=== PATIENT | male | born 1960 | race Caucasian/White ===

== ENCOUNTER → 2018-09-04 10:14 | Outpatient (CLI) | payer OTHER, SELFPAY ==
[2018-09-04 12:42] LABS: Anion Gap 8 (5-15); BUN 21 mg/dL (7-18); BUN/Creat Ratio 23.8 RATIO (10-20); Calcium,Total 8.8 mg/dL (8.5-10.1); Chloride 105 mmol/L (98-107); Cholesterol 189 mg/dL (200); Creatinine, Serum 0.88 mg/dL (0.70-1.30); EST Glomerular Filtration Rate 94 mL/min (>60); Est Glom Filt Rate - Afr Amer 113 mL/min (>60); Glucose 89 mg/dL (74-106); High Density Lipoprotein 55 mg/dL; Potassium 4.4 mmol/L (3.5-5.1); Sodium Level 141 mmol/L (136-145); Triglycerides 91 mg/dL; Very Low Density Lipoprotein 18 mg/dL (5-40)
--- OUTSIDE RECORDS SUMMARY | 2018-10-28 15:09 | XMS RPT_ITS ---
:1960 Author Organization OHIP Care Team Providers Name Role Phone Osvaldo Webster Attending Unavailable Osvaldo Webster Primary Care Unavailable PROBLEMS PROBLEMS No Problem Records FoundPROCEDURES PROCEDURES No Procedure Records FoundRESULTS RESULTS BASIC METABOLIC Collected: 09/04/2018 Status: F Source: KRISTA PROFILE (BMP) 10:16 AM [facility] REPOSITORY TYPE CODE TESTS RESULT OUT OF RANGE REFERENCE UNITS LAB L501.0100 74-106 mg/dL Normal GLU 89 Result Comment: Please note revised GLUCOSE reference range effective 2017. LAB L501.1000 7-18 mg/dL High BUN 21 LAB L501.1100 0.70-1.30 mg/dL Normal CREAT,SERUM 0.88 Result Comment: The validity of the calculated GFR AND GFRAA in patients over 70 years has not been determined. Clinical correlation is essential. LAB L501.1110 >60 mL/min Normal EST GFR 94 Result Comment: Non- GFR Calc LAB L501.1115 >60 mL/min Normal EST GFR - AA 113 Result Comment: GFR Calc LAB L501.1300 10-20 RATIO High BUN/CRE 23.8 LAB L501.2200 8.5-10.1 mg/dL CA Normal 8.8 LAB L501.5300 136-145 mmol/L NA Normal 141 LAB L501.5600 3.5-5.1 mmol/L K Normal 4.4 LAB L501.5900 98-107 mmol/L CL Normal 105 LAB L501.6100 21.0-32.0 mmol/L Normal CO2 28.0 LAB L501.6200 5-15 Normal GAP 8 Performed By: #### L500.2500, L500.4100 #### Laboratory [address] [place], [place], [address] LIPID PROFILE Collected: 09/04/2018 Status: F Source: [place] 10:16 AM [facility] REPOSITORY TYPE CODE TESTS RESULT OUT OF RANGE REFERENCE UNITS LAB L501.4900 200 mg/dL Normal CHOL 189 Result Comment: <200 mg/dL Desirable 200-240 mg/dL Borderline >240 mg/dL High Risk LAB L501.5000 mg/dL Normal TRIG 91 Result Comment: The drugs N-Acetylcysteine and Metamizole may falsely depress this assay. Serum Triglycerides Reference Interval Normal <150 mg/dL Borderline high 150 - 199 mg/dL High 200 - 499 mg/dL Very High > or = 500 mg/dL LAB L501.6400 mg/dL Normal HDL 55 Result Comment: The drugs N-Acetylcysteine and Metamizole may falsely depress this assay. Reference Range HDL <40 mg/dL Low HDL Cholesterol HDL >or= 60 mg/dL High HDL Cholesterol LAB L501.6500 0-130 mg/dL Normal LDL 116 LAB L501.6600 5-40 mg/dL Normal VLDL 18 Performed By: #### L500.2500, L500.4100 #### Laboratory [address] [place], [address] ALLERGIES ALLERGIES DATE TYPE / CODE NAME / CODE REACTION SEVERITY SOURCE 09/17/2013 Drug ampicillin/F Rash Unknown [facility] Allergy/4160 [id number]( Hospital 42974(SNOMED NORM) Repository CT) ENCOUNTERS ENCOUNTERS ADMIT/DISCHARGE ACCOUNT ADMITTING ENCOUNTER LOCATION SOURCE NUMBER CLASS 09/04/2018 [id number] Ambulatory [facility] ing:MFPLAB Repository PAYERS PAYERS ENCOUNTER GUARANTOR PAYER SUBSCRIBER SOURCE 09/04/2018 Karyn Brink Primary KARYN BRINK [place] [id number] Maty Insurance:Marion IIIDOB: [place], [place] Number: [id number] Hospital [address]Enn: [phone] [id number] Repository [phone] () Date:[id number] [id number], [place] [address]OP: 09/04/2018 Secondary NOT GIVENUNK [place] Insurance:SELF PAY [facility]: Effective Repository Date:2018-09-04
== END ==
PROVIDERS: Family Provider Family Medicine; PCP Family Medicine; Visit Provider Family Medicine
DX: Z00.00 Encounter for general adult medical examination without abnormal findings (principal)
CPT/HCPCS: 36415; 80048; 80061

== ENCOUNTER 2020-04-02 04:59 | Inpatient (IN) | payer OTHER, SELFPAY ==
[2020-04-02] VITALS (11 sets, daily range): BP systolic 123–153; BP diastolic 85–96; PULSE 74–104; RESP 14–18; TEMP 36.6–37.5; O2SAT 95–100; BMI 23.7; BMI 23.6
--- NOTE | 2020-04-02 05:21 | RAD_ITS ---
STUDY: X-RAY CHEST REASON FOR EXAM: Male, 59 years old. BITTEN BY DOG AT 0130 -- BITE ALONG RT DISTAL MEDIAL FOREARM -- C/O PAIN TO THAT AREA AND RT HAND (BEST IMAGES POSSIBLE OF HAND, PATIENT UNABLE TO MOVE FINGER) -- FEVER TECHNIQUE: Single AP portable view of the chest. COMPARISON: None. FINDINGS: The lungs are clear and expanded. There is no demonstrated pleural abnormality. Normal size heart. Normal mediastinum and ann marie. Normal visualized pulmonary arteries. Normal visualized aortic arch and descending thoracic aorta. Normal visualized thoracic spine. Normal visualized ribs, clavicles, and shoulders. There is no demonstrated abnormality of the visualized soft tissue structures of the upper abdomen. RAD/Chest 1 View (Portable) IMPRESSION: Normal x-ray examination of the chest. Electronically Signed: Teri Salinas, at 6:44 EDT Tel , Service support ,
--- NOTE | 2020-04-02 05:22 | RAD_ITS ---
STUDY: X-RAY - RIGHT RADIUS AND ULNA REASON FOR EXAM: Male, 59 years old. BITTEN BY DOG AT 0130 -- BITE ALONG RT DISTAL MEDIAL FOREARM -- C/O PAIN TO THAT AREA AND RT HAND (BEST IMAGES POSSIBLE OF HAND, PATIENT UNABLE TO MOVE FINGER) -- FEVER TECHNIQUE: 2 view(s) of the forearm. COMPARISON: None. FINDINGS: There is no demonstrated soft tissue swelling. Normal visualized radius. Normal visualized ulna. RAD/Forearm 2 Views IMPRESSION: Normal x-ray examination of the radius and ulna. Electronically Signed: Teri Salinas, at 6:42 EDT Tel , Service support ,
--- NOTE | 2020-04-02 05:22 | RAD_ITS ---
STUDY: X-RAY - RIGHT HAND REASON FOR EXAM: Male, 59 years old. Pain after dog bite. TECHNIQUE: 2 view(s) of the hand. COMPARISON: None. FINDINGS: Normal radiocarpal articulation. Normal distal radioulnar joint. Normal visualized carpal bones. Normal carpal articulations Normal carpometacarpal articulation of the thumb. Normal second through fifth carpometacarpal joints. Normal metacarpi. Normal metacarpophalangeal joint of the thumb. Normal interphalangeal joint of the thumb. Normal proximal and distal phalanges of the thumb. Normal metacarpophalangeal joints of the second through fifth fingers. Normal proximal and distal interphalangeal joints of the second through fifth fingers. Normal phalanges of the second through fifth fingers. The soft tissue structures are unremarkable. No radiopaque foreign bodies. RAD/Hand 2 Views IMPRESSION: Normal x-ray examination of the hand. Electronically Signed: Masoud Cuellar MD at 5:58 EDT , Service support ,
[2020-04-02 05:38] LABS: Absolute Lymphocyte Count 0.53 X10^3/uL (0.83-4.51); Absolute Neutrophil Count 9.3 X10^3/uL (2.0-7.7); Basophil# 0.04 X10^3/uL; Basophil% 0.4 % (0-1); Eosinophil# 0.03 X10^3/uL; Eosinophils% 0.3 % (0-5); Hematocrit 43.8 % (40-54); Hemoglobin 15.3 g/dL (13.0-16.5); Lymphocyte # 0.53 X10^3/ul (4.0); Lymphocyte % 4.8 % (19-41); Mean Corp Hgb Conc 34.9 g/dL (32-36); Mean Corpuscular Hgb 31.1 pg (27.0-32.0); Mean Platelet Vol. 9.2 fl (6.2-12.0); Monocyte# 1.05 X10^3/uL; Monocyte% 9.6 % (0-10); NRBC Flagged by Analyzer 0 % (0-5); Neutrophil # 9.25 X10^3/uL (2.7-7.7); Neutrophil % 84.6 % (47-70); POSITIVE DIFFERENTIAL YES; Platelet Count 165 K/mm3 (150-450); RBC Distribution Width CV 11.7 % (11.6-14.6); RBC Distribution Width SD 37.2 fl (35.1-43.9); Red Blood Count 4.92 M/mm3 (4.6-6.2); White Blood Count 10.9 K/mm3 (4.4-11.0)
[2020-04-02 05:41] LABS: Differential Indicated SCAN CRITERIA MET
[2020-04-02] MEDS: 0.9% Normal Saline 1,000 ML 999 ML IV (05:45)
[2020-04-02 05:55] LABS: International Normalized Ratio 1.1; Prothrombin Time (Protime)PT. 13.3 SECONDS (11.7-14.9)
[2020-04-02 05:59] LABS: ALB/GLOB Ratio 1.2 RATIO (0.9-2.4); AST(SGOT) 26 U/L (15-37); Alanine Aminotransfer ALT/SGPT 29 U/L (16-61); Alkaline Phosphatase 70 U/L (45-117); Anion Gap 8 (5-15); BUN 18 mg/dL (7-18); BUN/Creat Ratio 19.8 RATIO (10-20); Calcium,Total 8.2 mg/dL (8.5-10.1); Chloride 105 mmol/L (98-107); Creatinine, Serum 0.91 mg/dL (0.70-1.30); EST Glomerular Filtration Rate 90 mL/min (>60); Est Glom Filt Rate - Afr Amer 109 mL/min (>60); Estimated Creatinine Clearance 82.47 ml/min; Globulin 3.3 g/dL (2.2-4.2); Glucose 125 mg/dL (74-106); Potassium 3.7 mmol/L (3.5-5.1); Protein, Total 7.3 g/dL (6.4-8.2); Sodium Level 137 mmol/L (136-145)
[2020-04-02 06:07] LABS: Lactic Acid 0.8 mmol/L (0.4-1.9)
[2020-04-02 06:18] LABS: Differential Comment SCANNED
[2020-04-02 06:21] LABS: Partial Thromboplast Time 27.4 Seconds (24.1-36.2)
[2020-04-02 06:41] LABS: Bacteria 0 SEEN /hpf (None Seen); Mucous, Urine 0 SEEN /hpf (<or=2+); Red Blood Cells-Urine 0 SEEN /hpf (0-5); Squamous Epithelial Cells - UA 0 SEEN /hpf (0-5); White Blood Cells 0 SEEN /hpf (0-5)
[2020-04-02 06:58] LABS: Color, Urine Yellow (Yellow); Glucose, Dipstick Normal (Normal); Ketone-Dipstick Negative (Negative); Leukocyte Esterase-Dipstick Negative /ul (Negative); Nitrite-Dipstick Negative (Negative); Occult Blood-Urine 10 /ul (Negative); Protein-Dipstick Negative (Negative); Urine Bilirubin Dipstick Negative (Negative); Urine Clarity Clear (Clear); Urine Urobilinogen Normal (Normal)
--- NOTE | 2020-04-02 07:07 | ED.DCSUM_ITS ---
History of Present Illness Chief Complaint: Cellulitis Informant: Patient Onset: Yesterday Context: Sudden Onset Timing: Continuous Narrative: Patient is a 59-year-old male that denies any past medical history presenting with worsening pain from a dog bite to his right forearm. Patient was bit by a boxer yesterday. This occurred at 1330. He followed up at his PCPs office that afternoon was put on clindamycin and Bactrim as patient has an ampicillin allergy. Patient states he took his first dose. Throughout the night he became febrile with a temperature max of 100.1. Patient did take 2 Advil before coming in. He has had worsening redness, pain and now redness streaking up his forearm. He has a hard time opening up his hand. Patient's tetanus was updated most recently 2016. Patient denies any other complaints at this time. He denies any symptoms prior to the dog bite. He denies any nausea, vomiting, chest pain, shortness of breath, urinary symptoms or other rash. Past Medical History - Allergies and Home Meds Allergies/Adverse Reactions: Allergies ampicillin Allergy (Verified 04/02/20 05:09) Rash Primary Care Physician: Osvaldo Webster MD [Primary Care Provider] - Past Medical History: None Surgical History: noncontributory Smoking Status: Never smoker Review of Systems General: Reports: Chills, Fever, Malaise. Denies: Sweats Eyes: Denies: Visual changes - bilaterally, Diplopia ENT: Denies: Rhinorrhea, Sore throat Cardiovascular: Denies: Chest pain, Palpitations Respiratory: Denies: Dyspnea, Cough, Dyspnea on exertion Gastrointestinal: Denies: Abdominal pain, Nausea, Vomiting, Diarrhea, Melena, Hematochezia Genitourinary: Denies: Dysuria, Hematuria, Frequency Musculoskeletal: Reports: Extremity Pain - Right forearm and hand pain. Denies: Back pain Skin: Reports: Rash - Right forearm, Wounds - Right forearm Neurological: Denies: Headache, Weakness, Numbness Physical Exam Vital Signs/Narrative: Vital Signs Temp Pulse Resp BP Pulse Ox 04/02/20 06:21 97.8 F 74 16 137/85 H 99 04/02/20 06:07 97.9 F 85 17 123/90 H 95 04/02/20 05:48 98.1 F 90 16 148/96 H 99 04/02/20 05:47 98.1 F 04/02/20 05:00 98.3 F 104 H 17 153/90 H 98 Inital Vital Signs reviewed: Yes General: Well nourished, Well developed, No Acute Distress Head: Normocephalic, Atraumatic Eyes: Perrl, EOMI ENT: Moist mucous membranes, No rhinorrhea Neck: Supple, Nontender Cardiovascular: Regular rate, Regular rhythm, No murmurs Respiratory: No distress, CTA bilaterally, Chest nontender Abdomen: Soft, Nontender, Nondistended, Normal bowel sounds Back: Nontender, Normal Inspection Extremities: - - Tenderness palpation of the right forearm and hand. Patient is holding his right hand in slight flexion and does have pain with passive range of motion however he does not have other [place] signs. Normal range of motion. Skin: Trauma - 4 small puncture wounds of the ventral aspect of the right mid forearm system with a dog bite. There is surrounding erythema and erythema that is streaking up the arm past the AC fossa. Associated tenderness to palpation Neurological: Alert, Oriented x3, Cranial nerves II-XII grossly intact, Normal Strength, Normal Sensation Psychological: Normal affect, Normal Mood Diagnostic/Tx/Re-eval Clinical Impression(s) from Imaging Studies Chest X-Ray 04/02/20 05:21 IMPRESSION: Normal x-ray examination of the chest. Electronically Signed: Teri Salinas at 6:44 EDT Tel , Service support , Forearm X-Ray 04/02/20 05:22 IMPRESSION: Normal x-ray examination of the radius and ulna. Electronically Signed: Teri Salinas at 6:42 EDT Tel , Service support , Hand X-Ray 04/02/20 05:22 IMPRESSION: Normal x-ray examination of the hand. Electronically Signed: Masoud Cuellar MD at 5:58 EDT , Service support , Laboratory Data 04/02/20 04/02/20 04/02/20 05:20 05:20 05:20 WBC 10.9 RBC 4.92 Hgb 15.3 Hct 43.8 MCV 89.0 MCH 31.1 MCHC 34.9 RDW Std Deviation 37.2 RDW Coeff of Baldomero 11.7 Plt Count 165 MPV 9.2 Immature Gran % (Auto) 0.300 Neut % (Auto) 84.6 H Lymph % (Auto) 4.8 L Bledsoe % (Auto) 9.6 Eos % (Auto) 0.3 Baso % (Auto) 0.4 Absolute Neuts (auto) 9.3 H Absolute Lymphs (auto) 0.53 L Nucleated RBC % 0 Differential Comment SCANNED PT 13.3 INR 1.1 APTT 27.4 Sodium 137 Potassium 3.7 Chloride 105 Carbon Dioxide 24.0 Anion Gap 8 BUN 18 Creatinine 0.91 Estim Creat Clear Calc 82.47 Est GFR (MDRD) Af Amer 109 Est GFR (MDRD) Non-Af 90 BUN/Creatinine Ratio 19.8 Glucose 125 H Lactic Acid Calcium 8.2 L Total Bilirubin 1.30 H AST 26 ALT 29 Alkaline Phosphatase 70 Total Protein 7.3 Albumin 4.0 Globulin 3.3 Albumin/Globulin Ratio 1.2 Urine Color Urine Clarity Urine pH Ur Specific [place] Urine Protein Urine Glucose (UA) Urine Ketones Urine Occult Blood Urine Nitrite Urine Bilirubin Urine Urobilinogen Ur Leukocyte Esterase Urine RBC Urine WBC Ur Squamous Epith Cells Urine Bacteria Urine Mucus 04/02/20 04/02/20 05:35 06:20 WBC RBC Hgb Hct MCV MCH MCHC RDW Std Deviation RDW Coeff of Baldomero Plt Count MPV Immature Gran % (Auto) Neut % (Auto) Lymph % (Auto) Bledsoe % (Auto) Eos % (Auto) Baso % (Auto) Absolute Neuts (auto) Absolute Lymphs (auto) Nucleated RBC % Differential Comment PT INR APTT Sodium Potassium Chloride Carbon Dioxide Anion Gap BUN Creatinine Estim Creat Clear Calc Est GFR (MDRD) Af Amer Est GFR (MDRD) Non-Af BUN/Creatinine Ratio Glucose Lactic Acid 0.8 Calcium Total Bilirubin AST ALT Alkaline Phosphatase Total Protein Albumin Globulin Albumin/Globulin Ratio Urine Color Yellow Urine Clarity Clear Urine pH 6.0 Ur Specific [place] 1.010 Urine Protein Negative Urine Glucose (UA) Normal Urine Ketones Negative Urine Occult Blood 10 H Urine Nitrite Negative Urine Bilirubin Negative Urine Urobilinogen Normal Ur Leukocyte Esterase Negative Urine RBC 0 SEEN Urine WBC 0 SEEN Ur Squamous Epith Cells 0 SEEN Urine Bacteria 0 SEEN Urine Mucus 0 SEEN - Medical Decision Making Is evaluated for worsening redness and swelling in his forearm associate with a dog bite. His tetanus is up-to-date. Patient started outpatient in antibiotics but only had 1 dose. Patient has associated streaking of the hand swelling and pain now of the fingers I think admission is warranted for IV antibiotics given the rapid progression and the high risk of deep space infection associated with dog bites. X-ray performed to rule out foreign body. Urinalysis and chest x- ray obtained looking for other possible source of infection. Cultures are pending. Patient started on Rocephin and Flagyl in the emergency room. He is given Toradol for pain control. He is given IV fluids as well. Patient is agreeable with plan of care. He stable for the general medical floor at time of disposition. ED Disposition - Plan for ED Patient: Disposition: Acute Care Hospital [facility] Diagnosis: Cellulitis of forearm, right, Dog bite of right forearm with infection Referrals: Osvaldo Webster MD [Primary Care Provider] -
[2020-04-02] MEDS: Ketorolac 15 MG/ML Vial IV (07:18)
[2020-04-02] MEDS: Ceftriaxone 1 GM/50 ML BAG IV (07:26)
[2020-04-02] MEDS: metroNIDAZOLE 500 MG/100 ML BAG 100 MG IV (07:26)
--- NOTE | 2020-04-02 07:28 | HP.PCM_ITS ---
Problem List (1) Cellulitis of forearm, right Status: Acute (2) Dog bite of right forearm with infection Status: Acute History of Present Illness Date of Admission: 04/02/20 Chief Complaint: Right forearm redness The patient is a 59 year old M in relatively good health who presented to the emergency department with redness and warmth involving the right forearm. Patient had apparently been bitten by a neighbor's dog a day prior to his admission. He was seen by his primary care physician prescribed clindamycin as well as Bactrim. He however did develop a low-grade fever during the evening as well as streaking up his left forearm. He therefore made the decision to present to the emergency department and assessment of an infected dog bite with cellulitis made admitted to regular nursing for further management Past Medical History Allergies ampicillin Allergy (Verified 04/02/20 05:09) Rash Home Medications: Ambulatory Orders Medication Instructions Recorded Clindamycin HCl 300 mg PO TID 04/02/20 Sulfamethoxazole/Trimethoprim 1 ea PO BID 04/02/20 [Sulfamethoxazole-Tmp Ds Tablet] Surgical History: noncontributory Smoking Status: Never smoker Tobacco Use: Non-smoker - *Family History Maternal History Items: No pertinent history - alive at 89 Sibling History Items: - - At 94 from complications following a fall Review of Systems Constitutional: Reports: Fever HEENT: Denies: Head Aches, Sinus Congestion, Sinus Drainage Cardiovascular: Denies: Chest Pain, Orthopnea, Palpitations, Paroxysmal Noc. Dyspnea Respiratory: Denies: Cough, Shortness of breath at rest, Shortness of breath upon exertion, Sputum production Gastrointestinal: Denies: Abdominal Pain, Hematemesis, Hematochezia, Nausea, Melena, Vomiting Genitourinary: Denies: Dysuria, Frequency, Hematuria, Urgency Musculoskeletal: Denies: Joint Pain, Joint Tenderness Skin: Reports: Skin Changes Neurological: Denies: Focal weakness, Numbness, Tingling Psychiatric: Denies: Homicidal Ideations, Suicidal Ideations Hematologic/ Lymphatic: Denies: Easy Bruising, Easy Bleeding VTE Information - Inpt Only VTE Present on Admission: No VTE Mechan Device Prophylaxis: None VTE Pharm Prophylaxis ordered?: Yes Patient Problems: Active and Suspected Problems Cellulitis of forearm, right (Acute) Dog bite of right forearm with infection (Acute) Objective: GENERAL: cooperative HEENT: Atraumatic; EYES; Anicteric, Normal Conjunctiva NECK; supple, normal thyroid, RESPIRATORY: Diminished to auscultation CARDIOVASCULAR: Regular S1 S2, GI: soft, normoactive bowel sounds, : No Renal angle tenderness; EXTREMITIES: An area of erythema involving on the right forearm extending up to the antecubital fossa MUSCULOSKELETAL: no muscle waisting NEURO: Awake; no lateralizing signs. SKIN: As described above PSYCH; Flat affect - Physical Exam Vitals/I&O's: Vital Signs Temp Pulse Resp BP Pulse Ox 97.8 F 74 16 137/85 H 99 04/02/20 06:21 04/02/20 06:21 04/02/20 06:21 04/02/20 06:21 04/02/20 06:21 Oxygen Delivery Method Room Air Weight: 70.8 kg Body Mass Index (BMI) 23.7 Intake and Output for Last 24 Hours 03/31/20 04/01/20 04/02/20 23:59 23:59 23:59 Intake Total 1000 / 1000 Balance 1000 / 1000 Laboratory Results 04/02/20 05:20: WBC 10.9, RBC 4.92, Hgb 15.3, Hct 43.8, MCV 89.0, MCH 31.1, MCHC 34.9, RDW Std Deviation 37.2, RDW Coeff of Baldomero 11.7, Plt Count 165, MPV 9.2, Immature Gran % (Auto) 0.300, Neut % (Auto) 84.6 H, Lymph % (Auto) 4.8 L, [place] % (Auto) 9.6, Eos % (Auto) 0.3, Baso % (Auto) 0.4, Absolute Neuts (auto) 9.3 H, Absolute Lymphs (auto) 0.53 L, Nucleated RBC % 0, Differential Comment SCANNED 04/02/20 05:20: PT 13.3, INR 1.1, APTT 27.4 04/02/20 05:20: Sodium 137, Potassium 3.7, Chloride 105, Carbon Dioxide 24.0, Anion Gap 8, BUN 18, Creatinine 0.91, Estim Creat Clear Calc 82.47, Est GFR (MDRD) Af Amer 109, Est GFR (MDRD) Non-Af 90, BUN/Creatinine Ratio 19.8, Glucose 125 H, Calcium 8.2 L, Total Bilirubin 1.30 H, AST 26, ALT 29, Alkaline Phosphatase 70, Total Protein 7.3, Albumin 4.0, Globulin 3.3, Albumin/Globulin Ratio 1.2 04/02/20 05:35: Lactic Acid 0.8 04/02/20 06:20: Urine Color Yellow, Urine Clarity Clear, Urine pH 6.0, Ur Specific [place] 1.010, Urine Protein Negative, Urine Glucose (UA) Normal, Urine Ketones Negative, Urine Occult Blood 10 H, Urine Nitrite Negative, Urine Bilirubin Negative, Urine Urobilinogen Normal, Ur Leukocyte Esterase Negative, Urine RBC 0 SEEN, Urine WBC 0 SEEN, Ur Squamous Epith Cells 0 SEEN, Urine Bacteria 0 SEEN, Urine Mucus 0 SEEN Current Medications Metronidazole (Flagyl) 500 mg in 100 mls @ 100 mls/hr IV X1 ONE Stop: 04/02/20 08:09 Last Admin: 04/02/20 07:26 Dose: 100 mls/hr Documented by: Ceftriaxone Sodium (Rocephin) 1 gm in 50 mls @ 100 mls/hr IV X1 ONE Stop: 04/02/20 07:39 Last Admin: 04/02/20 07:26 Dose: 100 mls/hr Documented by: Assessment/Plan All Active Problems Cellulitis of forearm, right (Acute) Dog bite of right forearm with infection (Acute) Patient is a 59-year-old gentleman presented with right forearm erythema and streaking 1. Cellulitis of the right forearm following the dog bites ?Patient did feel outpatient treatment with oral antibiotics admitted to regular nursing floor where patient was started on Levaquin and clindamycin. He apparently has an allergy to penicillin. 2. DVT prophylaxis Lovenox CODE STATUS Full code Inpatient E&M: 56514 Init Hosp L2
--- NOTE | 2020-04-02 09:45 | CASEMGMT ---
RN JANA Face to Face with patient for initial transition planning/care coordination assessment. RN CM introduced self and role at [facility]. Patient lying in bed, alert and oriented. Patient willing to participate in assessment and is able to answer all questions appropriately. Care providers, pharmacy, and demographics verified. Patient wishes to discharge home, denies need for home health at this time. Patient states he has no further needs or concerns at this time. CM to follow for discharge planning needs that may arise. PCP: Eleanor Specialists: [facility] Preferred Pharmacy: [facility] Insurance: [employer] Prescription Benefit: yes Living Will/HPOA: yes, Kenia Brink LNOK: Living Arrangements: Patient lives with in 2 story home. Patient is independent at home and is able to ambulate the stairs. Transportation: self/ DME/HHC: Patient denies any DME or previous HHC. Disposition Plan: Patient to discharge home with family support and follow-up plans in place. Yuki COKER, RN, CM
[2020-04-02] MEDS: levoFLOXacin IV 750 MG/150 ML BAG 100 MG IV (10:16)
[2020-04-02] MEDS: Enoxaparin 40 MG/0.4 ML Syringe SC (10:16)
[2020-04-02] MEDS: Acetaminophen 325 MG Tablet 650 MG PO ×2 (10:16→20:26)
[2020-04-02] MEDS: oxyCODONE 5 MG Tablet PO ×2 (11:09→20:26)
--- NOTE | 2020-04-02 21:25 | CT_ITS ---
Exam: Contrast CT of the right upper extremity. HISTORY: Dog bite. Pharyngitis. COMPARISON: Radiographs 04/02/2020 FINDINGS: A few tiny foci of soft tissue air seen anterior to the distal ulna which could be related to the dog bite itself, or infection. No gross focal fluid collections or abscess. Normal appearance of the muscle bundles, visualized tendons, bones, and vascular structures. Note: CT scan would not be able to exclude or confirm lymphangitis. CT/Extremity Upper WITH Contrast IMPRESSION: No focal fluid collections or evidence for abscess. A few tiny foci of soft tissue air seen just volar to the distal ulna, see above. Electronically Signed: Marko Valdovinos MD at 23:06 EDT , Service support ,
--- NOTE | 2020-04-02 21:30 | PN_ITS ---
Progress Note Notified by nurse that lymphangitic streaking of right arm is extending up. Patient was seen at the bedside. Patient showed pictures showing spreading of lymphangitic streaking. Alert and oriented x3. Heart sounds S1-S2 present. Lungs clear to auscultate. Patient unable to fully extend fingers of right hand. Decreased strength in right arm. Patient able to straighten the fingers of right arm. Impression Dog bite with cellulitis. Worsening course. On Levaquin and clindamycin.Patient is allergic to penicillin. He received ceftriaxone x1 on presentation. His allergy to penicillin is a diffuse rash. Will start patient on Merrem. 1000 mg now and then 500 mg every 8 hours. We will continue patient on clindamycin. Discontinue Levaquin Discussed with Dr. Chisholm and sent pictures by [facility]. Dr. Chisholm recommended patient be kept n.p.o. after midnight; and a CT of extremity be obtained. Will order as recommended. Dr. Chisholm to see patient tomorrow; appreciate her assistance.. STROKE Vital Signs/Narrative: Vital Signs Pulse 04/02/20 20:00 88
--- NOTE | 2020-04-03 00:01 | NURSING ---
Dr. Maya in the room speaking with the patient and answering questions and going over cat scan. Second time Dr. Maya in the room was in with them at 2030 this night as well ordered antibiotics and scan.
--- NOTE | 2020-04-03 00:32 | PCM.PN.BLA ---
Progress Note Patient is requesting transfer to outside Hospital: [facility] His reason of transfer is: to be seen by Hand surgeon residents tonight. He reports that he has been advised that at [facility] there are residents who work with Hand surgeons and they can see him tonight Discussed with patient of CT scan finding that does not show abscess or any intervention tonight. A copy of CT scan reading was given to patient. Patient still requested that transfer process should begin. Discussed with [facility]. Face sheet and radiologist reading of CT scan was faxed to transfer line. Per transfer line, case will be discussed with [facility] Hospitalist. STROKE Vital Signs/Narrative: Vital Signs Temp Pulse Resp BP Pulse Ox 04/02/20 22:37 98.8 F 99 18 151/95 H 99
--- NOTE | 2020-04-03 00:45 | PCM.DC.SUM ---
Discharge Date and Diagnosis - Problem List Patient Problems: Active and Suspected Problems Cellulitis of forearm, right (Acute) Dog bite of right forearm with infection (Acute) Date of Admission: 04/02/20 Date of Discharge: 04/03/20 - Primary Discharge Diagnosis Acute Problems: Active Problems Cellulitis of forearm, right (Acute) Dog bite of right forearm with infection (Acute) Hospital Course and Treatment Imaging Results: 04/02/20 21:25 CT Arm [Extremity Upper WITH Contrast] [CT] Routine Summary of Care Provided: The patient is a 59 year old M with relative good health who presented to the emergency department with redness and warmth of right forearm after being bitten by a neighbor's dog. Following the dog bite reportedly patient noticed redness streaking up his forearm and had time opening his hand. Patient developed a temperature with a maximum of 100.1 outpatient. Outpatient patient was given clindamycin n.p.o. Bactrim as he was allergic to ampicillin. At emergent department patient was given Rocephin and Flagyl. On x-ray and forearm x-ray was unremarkable. Chest x-ray was unremarkable. Patient was admitted to the medical surgical floor. While inpatient patient was placed on scheduled Levaquin IV and clindamycin IV. While in the medical surgical floor patient thought that the redness of his forearm is extending. Patient was started on meropenem IV. Clindamycin was continued. Orthopedic surgeon was noted. Or surgery recommended the patient be kept n.p.o. and CT of forearm obtained. CT of the forearm showed a few tiny foci of soft tissue air volar to the distal ulna. This was discussed with patient. Patient was adamant that that he want to be transferred to [facility] so that he will be seen night of 04/02/2022 to 04/03/2020. Patient thinks that resident of hand surgeon can still see him night of said date. [facility] was contacted. Patient Problems: Active and Suspected Problems Cellulitis of forearm, right (Acute) Dog bite of right forearm with infection (Acute) - Physical Exam Vitals/I&O's: Vital Signs Temp Pulse Resp BP Pulse Ox 98.8 F 99 18 151/95 H 99 04/02/20 22:37 04/02/20 22:37 04/02/20 22:37 04/02/20 22:37 04/02/20 22:37 Oxygen Delivery Method Room Air Weight: 70.624 kg Body Mass Index (BMI) 23.6 Intake and Output for Last 24 Hours 04/01/20 04/02/20 04/03/20 23:59 23:59 23:59 Intake Total 2 / 2312 Output Total 350 / 350 Balance 1961 General: Alert, Oriented x3, Cooperative HEENT: Atraumatic, PERRLA, EOMI, Normocephalic Neck: Supple, No JVD, Negative Carotid Bruits Lungs: Clear to auscultation, Normal air movement Cardiovascular: Regular rate, Normal S1, Normal S2, No murmurs Abdomen: Bowel Sounds Present, Soft, Non Tender Extremities: Capillary Refill Less than 3 Seconds, Tenderness - Right forearm and right hand. Skin: - - Erythema of volar side of right forearm with lymphangitic streaking extending into right arm. Musculoskeletal: Tenderness - Right forearm and right hand, - - Unable to extend fingers of right hand Neurological: Cranial nerves II-XII grossly intact Psych/Mental Status: Normal Affect, Appropriate Laboratory Results 04/02/20 05:20: WBC 10.9, RBC 4.92, Hgb 15.3, Hct 43.8, MCV 89.0, MCH 31.1, MCHC 34.9, RDW Std Deviation 37.2, RDW Coeff of Baldomero 11.7, Plt Count 165, MPV 9.2, Immature Gran % (Auto) 0.300, Neut % (Auto) 84.6 H, Lymph % (Auto) 4.8 L, [place] % (Auto) 9.6, Eos % (Auto) 0.3, Baso % (Auto) 0.4, Absolute Neuts (auto) 9.3 H, Absolute Lymphs (auto) 0.53 L, Nucleated RBC % 0, Differential Comment SCANNED 04/02/20 05:20: PT 13.3, INR 1.1, APTT 27.4 04/02/20 05:20: Sodium 137, Potassium 3.7, Chloride 105, Carbon Dioxide 24.0, Anion Gap 8, BUN 18, Creatinine 0.91, Estim Creat Clear Calc 82.47, Est GFR (MDRD) Af Amer 109, Est GFR (MDRD) Non-Af 90, BUN/Creatinine Ratio 19.8, Glucose 125 H, Calcium 8.2 L, Total Bilirubin 1.30 H, AST 26, ALT 29, Alkaline Phosphatase 70, Total Protein 7.3, Albumin 4.0, Globulin 3.3, Albumin/Globulin Ratio 1.2 04/02/20 05:35: Lactic Acid 0.8 04/02/20 06:20: Urine Color Yellow, Urine Clarity Clear, Urine pH 6.0, Ur Specific [place] 1.010, Urine Protein Negative, Urine Glucose (UA) Normal, Urine Ketones Negative, Urine Occult Blood 10 H, Urine Nitrite Negative, Urine Bilirubin Negative, Urine Urobilinogen Normal, Ur Leukocyte Esterase Negative, Urine RBC 0 SEEN, Urine WBC 0 SEEN, Ur Squamous Epith Cells 0 SEEN, Urine Bacteria 0 SEEN, Urine Mucus 0 SEEN Current Medications Acetaminophen (Tylenol) 650 mg PO Q6H PRN PRN PRN Reason: Pain Score 1-10/Temp > 100.7 F Last Admin: 04/02/20 20:26 Dose: 650 mg Documented by: Al Hydroxide/Mg Hydroxide (Mylanta Ii) 30 ml PO Q6H PRN PRN PRN Reason: Gastric Burning Dextrose (D50w Syringe) 0 gm IV X1 PRN; Protocol PRN Reason: Hypoglycemia Enoxaparin Sodium (Lovenox) 40 mg SC DAILY [facility] Last Admin: 04/02/20 10:16 Dose: 40 mg Documented by: Glucagon () 1 mg IM .X1 PRN PRN Reason: Hypoglycemia Clindamycin Phosphate 900 mg/ (Dextrose) 106 mls @ 150 mls/hr IV Q8 [facility] Last Infusion: 04/02/20 21:33 Dose: Infused Documented by: Sodium Chloride () 250 mls @ 15 mls/hr IV .[id number] PRN PRN Reason: Saline Flush Sodium Chloride () 250 mls @ 15 mls/hr IV .[id number] PRN PRN Reason: Additional IVPB Infusion Meropenem 1 gm/ Sodium (Chloride) 120 mls @ 33 mls/hr IV X1 ONE Stop: 04/03/20 00:54 Last Admin: 04/02/20 22:28 Dose: 33 mls/hr Documented by: Meropenem 500 mg/ Sodium (Chloride) 60 mls @ 100 mls/hr IV Q8 [facility] Magnesium Hydroxide (Milk Of Magnesia) 30 ml PO DAILY PRN PRN PRN Reason: Constipation Melatonin (Melatonin) 3 mg PO QHS PRN PRN PRN Reason: INSOMNIA Morphine Sulfate () 4 mg IV Q3H PRN PRN PRN Reason: Pain Score 6-10/10 Ondansetron HCl (Zofran) 4 mg IV Q8H PRN PRN PRN Reason: NAUSEA/VOMITING Oxycodone HCl (Oxyir) 5 mg PO Q4H PRN PRN PRN Reason: Pain Score 4-5/10 Last Admin: 04/02/20 20:26 Dose: 5 mg Documented by: Promethazine HCl (Phenergan) 25 mg IM Q6H PRN PRN PRN Reason: Breakthrough nausea/vomiting Sodium Chloride () 10 - 40 ml IV UD PRN PRN Reason: SALINE FLUSH Home Medications: Medications to take at Discharge Clindamycin HCl 300 mg PO TID 04/02/20 Sulfamethoxazole/Trimethoprim [Sulfamethoxazole-Tmp Ds Tablet] 1 ea PO BID 04/02/20 Primary Care Physician: Osvaldo Webster MD [Primary Care Provider] - Medical Necessity - Tobacco Use Smoking Status: Never smoker Tobacco Use: Non-smoker Meaningful Use Info Meaningful Use Diagnoses (Choose all that apply): None applicable Inpatient E&M: 32685 Disch Hosp
--- NOTE | 2020-04-03 01:08 | PCM.PN.BLA ---
Progress Note Transfer line called stated that [facility] hospitalist has declined admission as this will be a lateral transfer. [facility] reportedly had recommended that patient can sign out AMA and go to their emergency department to be seen. [facility] and presented all options to him including signing out AMA. Encouraged patient to stay at hospital and continue IV antibiotics and be seen by orthopedic surgeon ; and Hospitalist in am. Discussed with patient and nurses about putting a Kerlix roll in his right hand and a physical therapy to evaluate and treat for hand exercises. Orders placed for Kerlix roll; and PT and OT consult. STROKE Vital Signs/Narrative: Vital Signs Temp Pulse Resp BP Pulse Ox 04/02/20 22:37 98.8 F 99 18 151/95 H 99
[2020-04-03] MEDS: oxyCODONE 5 MG Tablet PO ×4 (02:08→21:59)
[2020-04-03 02:11] VITALS: BP 155/94; PULSE 81; RESP 18; TEMP 37.1; O2SAT 98
[2020-04-03 07:01] LABS: Absolute Lymphocyte Count 0.88 X10^3/uL (0.83-4.51); Absolute Neutrophil Count 5.5 X10^3/uL (2.0-7.7); Basophil# 0.02 X10^3/uL; Basophil% 0.3 % (0-1); Eosinophil# 0.08 X10^3/uL; Eosinophils% 1.1 % (0-5); Hematocrit 42.5 % (40-54); Hemoglobin 14.8 g/dL (13.0-16.5); Lymphocyte # 0.88 X10^3/ul (4.0); Lymphocyte % 12.3 % (19-41); Mean Corp Hgb Conc 34.8 g/dL (32-36); Mean Corpuscular Hgb 31.6 pg (27.0-32.0); Mean Corpuscular Volume 90.8 fL (80-94); Mean Platelet Vol. 9.3 fl (6.2-12.0); Monocyte# 0.71 X10^3/uL; Monocyte% 9.9 % (0-10); NRBC Flagged by Analyzer 0 % (0-5); Neutrophil # 5.45 X10^3/uL (2.7-7.7); Platelet Count 160 K/mm3 (150-450); RBC Distribution Width CV 11.9 % (11.6-14.6); RBC Distribution Width SD 39.2 fl (35.1-43.9); Red Blood Count 4.68 M/mm3 (4.6-6.2); White Blood Count 7.2 K/mm3 (4.4-11.0)
--- NOTE | 2020-04-03 07:25 | PCM.PN.HOSP ---
Patient Problems: Active and Suspected Problems Cellulitis of forearm, right (Acute) Dog bite of right forearm with infection (Acute) Reason for Visit: Right forearm cellulitis and abscess following a dog bite Subjective: Patient seen complains of improved swelling as well as range of movements in the hands been significantly better compared to the day prior. CT of the forearm obtained demonstrated No focal fluid collections or evidence for abscess. A few tiny foci of soft tissue air seen just volar to the distal ulna, Objective: GENERAL: cooperative HEENT: Atraumatic; EYES; Anicteric, Normal Conjunctiva NECK; supple, normal thyroid, RESPIRATORY: Diminished to auscultation CARDIOVASCULAR: Regular S1 S2, GI: soft, normoactive bowel sounds, : No Renal angle tenderness; EXTREMITIES: An area of erythema involving on the right forearm extending up to the antecubital fossa MUSCULOSKELETAL: no muscle waisting NEURO: Awake; no lateralizing signs. SKIN: As described above PSYCH; Flat affect Vitals/I&O's: Vital Signs Temp Pulse Resp BP Pulse Ox 98.7 F 81 18 155/94 H 98 04/03/20 02:11 04/03/20 02:11 04/03/20 02:11 04/03/20 02:11 04/03/20 02:11 Oxygen Delivery Method Room Air Weight: 70.624 kg Body Mass Index (BMI) 23.6 Intake and Output for Last 24 Hours 04/01/20 04/02/20 04/03/20 23:59 23:59 23:59 Intake Total 2312 / 2912 826 / 826 Output Total 350 / 350 Balance 1962 / 2562 826 / 826 Laboratory Results 04/03/20 06:41: WBC 7.2, RBC 4.68, Hgb 14.8, Hct 42.5, MCV 90.8, MCH 31.6, MCHC 34.8, RDW Std Deviation 39.2, RDW Coeff of Baldomero 11.9, Plt Count 160, MPV 9.3, Immature Gran % (Auto) 0.400, Neut % (Auto) 76.0 H, Lymph % (Auto) 12.3 L, [place] % (Auto) 9.9, Eos % (Auto) 1.1, Baso % (Auto) 0.3, Absolute Neuts (auto) 5.5, Absolute Lymphs (auto) 0.88, Nucleated RBC % 0 07/02/20 06:41: Sodium Pending, Potassium Pending, Chloride Pending, Carbon Dioxide Pending, Anion Gap Pending, BUN Pending, Creatinine Pending, Est GFR (MDRD) Af Amer Pending, Est GFR (MDRD) Non-Af Pending, BUN/Creatinine Ratio Pending, Glucose Pending, Calcium Pending, Magnesium Pending Current Medications Acetaminophen (Tylenol) 650 mg PO Q6H PRN PRN PRN Reason: Pain Score 1-10/Temp > 100.7 F Last Admin: 04/02/20 20:26 Dose: 650 mg Documented by: Al Hydroxide/Mg Hydroxide (Mylanta Ii) 30 ml PO Q6H PRN PRN PRN Reason: Gastric Burning Dextrose (D50w Syringe) 0 gm IV X1 PRN; Protocol PRN Reason: Hypoglycemia Enoxaparin Sodium (Lovenox) 40 mg SC DAILY [facility] Last Admin: 04/02/20 10:16 Dose: 40 mg Documented by: Glucagon () 1 mg IM .X1 PRN PRN Reason: Hypoglycemia Clindamycin Phosphate 900 mg/ (Dextrose) 106 mls @ 150 mls/hr IV Q8 [facility] Last Infusion: 04/03/20 06:51 Dose: Infused Documented by: Sodium Chloride () 250 mls @ 15 mls/hr IV .[id number] PRN PRN Reason: Saline Flush Sodium Chloride () 250 mls @ 15 mls/hr IV .[id number] PRN PRN Reason: Additional IVPB Infusion Meropenem 500 mg/ Sodium (Chloride) 60 mls @ 100 mls/hr IV Q8 [facility] Magnesium Hydroxide (Milk Of Magnesia) 30 ml PO DAILY PRN PRN PRN Reason: Constipation Melatonin (Melatonin) 3 mg PO QHS PRN PRN PRN Reason: INSOMNIA Morphine Sulfate () 4 mg IV Q3H PRN PRN PRN Reason: Pain Score 6-10/10 Ondansetron HCl (Zofran) 4 mg IV Q8H PRN PRN PRN Reason: NAUSEA/VOMITING Oxycodone HCl (Oxyir) 5 mg PO Q4H PRN PRN PRN Reason: Pain Score 4-5/10 Last Admin: 04/03/20 02:08 Dose: 5 mg Documented by: Promethazine HCl (Phenergan) 25 mg IM Q6H PRN PRN PRN Reason: Breakthrough nausea/vomiting Sodium Chloride () 10 - 40 ml IV UD PRN PRN Reason: SALINE FLUSH Medical Necessity - Tobacco Use Smoking Status: Never smoker Tobacco Use: Non-smoker Assessment/Plan All Active Problems Cellulitis of forearm, right (Acute) Dog bite of right forearm with infection (Acute) Patient is a 59-year-old gentleman presented with right forearm erythema and streaking 1. Cellulitis of the right forearm following the dog bites ?Patient did feel outpatient treatment with oral antibiotics admitted to regular nursing floor where patient was started on Levaquin and clindamycin. He apparently has an allergy to penicillin. -04/03/2020. Patient was seen in consultation by Dr. Isabel with infectious diseases note and recommendations including antibiotic recommendations reviewed. 2. DVT prophylaxis Lovenox Clinical Impression(s) from Imaging Studies Upper Extremity CT 04/02/20 21:25 IMPRESSION: No focal fluid collections or evidence for abscess. A few tiny foci of soft tissue air seen just volar to the distal ulna, see above. Electronically Signed: Marko Valdovinos MD at 23:06 EDT , Service support , Inpatient E&M: [id number] Subs Hosp L2
[2020-04-03 07:36] LABS: Anion Gap 6 (5-15); BUN 13 mg/dL (7-18); BUN/Creat Ratio 14.6 RATIO (10-20); Calcium,Total 8.3 mg/dL (8.5-10.1); Chloride 105 mmol/L (98-107); Creatinine, Serum 0.89 mg/dL (0.70-1.30); EST Glomerular Filtration Rate 92 mL/min (>60); Est Glom Filt Rate - Afr Amer 111 mL/min (>60); Estimated Creatinine Clearance 84.33 ml/min; Glucose 118 mg/dL (74-106); Magnesium 2.2 mg/dL (1.6-2.6); Potassium 3.6 mmol/L (3.5-5.1); Sodium Level 138 mmol/L (136-145)
[2020-04-03 07:43] VITALS: O2SAT 97
[2020-04-03] MEDS: Acetaminophen 325 MG Tablet 650 MG PO ×3 (07:56→21:58)
[2020-04-03] MEDS: Enoxaparin 40 MG/0.4 ML Syringe SC (09:29)
[2020-04-03 09:31] VITALS: BP 136/72; PULSE 80; RESP 18; TEMP 36.7; O2SAT 94
--- NOTE | 2020-04-03 10:18 | PCM.HP.ID ---
Problem List (1) Dog bite of right forearm with infection Status: Acute Reason for Consult: dog bite Consulted by: Dr. Mcghee History of Present Illness: The patient is a 59 year old M with minimal PMH, presented 04/02 with R forearm cellulitis after dog bite 04/01. Neighbor was dog sitting, dog is up to date on shots and has been acting normally. He got bite, wound was bleeding, washed with betadine for a few minutes. He is up to date on tetanus. Saw PCP, given clinda and bactrim. Took one dose, had worsening pain, swelling, and redness going up upper arm, fever. Came to ED 04/02, given ceftriaxone/flagyl, then levaquin/clinda, then meropenem and clinda. Wrist is now much better in terms of ROM. Redness much improved. Feeling better, no drainage. He is R handed. Reports rash with ampicillin 40 years ago, no other beta lactams since then other than ceftriaxone here. Full ROS performed and neg except as noted above. - Medical History Surgical History: reviewed Allergies/Adverse Reactions: Allergies ampicillin Allergy (Verified 04/02/20 05:09) Rash Home Medications: Ambulatory Orders Medication Instructions Recorded Clindamycin HCl 300 mg PO TID 04/02/20 Sulfamethoxazole/Trimethoprim 1 ea PO BID 04/02/20 [Sulfamethoxazole-Tmp Ds Tablet] - Social History Tobacco Use: non-smoker Vital Signs Temp Pulse Resp BP Pulse Ox 98.1 F 80 18 136/72 H 94 04/03/20 09:31 04/03/20 09:31 04/03/20 09:31 04/03/20 09:31 04/03/20 09:31 Oxygen Delivery Method Room Air Weight: 70.624 kg Body Mass Index (BMI) 23.6 Laboratory Tests Past 24 Hrs 04/03/20 04/03/20 06:41 06:41 WBC 7.2 RBC 4.68 Hgb 14.8 Hct 42.5 MCV 90.8 MCH 31.6 MCHC 34.8 RDW Std Deviation 39.2 RDW Coeff of Baldomero 11.9 Plt Count 160 MPV 9.3 Immature Gran % (Auto) 0.400 Neut % (Auto) 76.0 H Lymph % (Auto) 12.3 L [place] % (Auto) 9.9 Eos % (Auto) 1.1 Baso % (Auto) 0.3 Absolute Neuts (auto) 5.5 Absolute Lymphs (auto) 0.88 Nucleated RBC % 0 Sodium 138 Potassium 3.6 Chloride 105 Carbon Dioxide 27.0 Anion Gap 6 BUN 13 Creatinine 0.89 Estim Creat Clear Calc 84.33 Est GFR (MDRD) Af Amer 111 Est GFR (MDRD) Non-Af 92 BUN/Creatinine Ratio 14.6 Glucose 118 H Calcium 8.3 L Magnesium 2.2 - Other Studies Radiology: [] reviewed Other Studies: [] Route of nutrition/ use of supplements: [] Nutritional Intake: [] IV Site: [] [place] Catheter: [] - Physical Exam General: Alert, Oriented x3, Cooperative, No apparent distress HEENT: Atraumatic, PERRLA, EOMI Neck: Supple, No Nodes Lungs: Clear to auscultation, Normal air movement Cardiovascular: Regular rate, Regular Rhythm, No murmurs Abdomen: Soft, Non Tender, Non-Distended Extremities: No edema Skin: Ulcer/ Wound - R forearm, resolving erythema, scabbed wounds with no purulence, no pain with wrist or finger movement. IV Site: Peripheral, without redness Musculoskeletal: No Tenderness to Palpation of Joints or Extremities Neurological: Cranial nerves II-XII grossly intact - Assessment/Plan Antibiotics: [] Assessment/Plan: [] Active and Suspected Problems Cellulitis of forearm, right (Acute) Dog bite of right forearm with infection (Acute) Much improved. CT with no abscess or deeper involvement. No fever and normal wbc here. Redness, swelling, and ROM much improved. Dr. Chisholm to see. Will narrow abx to ceftriaxone/flagyl. Plan will be for discharge home on 5-7 more days of po omnicef 300mg bid and flagyl. Remote h/o rash with ampicillin, no issues with ceftriaxone here. Will follow as needed, thank you.
[2020-04-03] MEDS: metroNIDAZOLE 500 MG Tablet PO ×2 (12:34→17:27)
--- NOTE | 2020-04-03 13:32 | CASEMGMT ---
NEIL BATES NOTE: OT eval reviewed and additional therapy recommended. NEIL CM to room to talk with pt. He states he would like OP therapy @ [facility]. Script placed on chart awaiting Dr Mcghee's signature. Dr Mcghee is aware. Script to be given to pt once signature obtained. RNMarcelle, made aware. Tri CLEMONSN NEIL BATES
[2020-04-03 14:50] VITALS: BP 130/80; PULSE 72; RESP 18; TEMP 36.8; O2SAT 100
--- NOTE | 2020-04-03 16:02 | CON.PCM_ITS ---
Reason for Consult Date of Consultation: 04/03/20 Reason for Consultation: right arm pain History of Present Illness: The patient is a 59 year old M [] he patient is a 59 year old M with minimal PMH, presented 04/02 with R forearm cellulitis after dog bite 04/01. Neighbor was dog sitting, dog is up to date on shots and has been acting normally. He got bite, wound was bleeding, washed with betadine for a few minutes. He is up to date on tetanus. Saw PCP, given clinda and bactrim. Took one dose, had worsening pain, swelling, and redness going up upper arm, fever. Came to ED 04/02, given ceftriaxone/flagyl, then levaquin/clinda, then meropenem and clinda. Feeling better today after changing antibiotics. States that the erythema is much better his hand motion is much better he is having a lot less pain as well. Past Medical History Allergies ampicillin Allergy (Verified 04/02/20 05:09) Rash Home Medications: Ambulatory Orders Medication Instructions Recorded Cefdinir [Omnicef [equiv]] 300 mg PO Q12H #14 cap 04/04/20 metroNIDAZOLE [Flagyl] 500 mg PO Q8H #21 tab 04/04/20 Surgical History: noncontributory Psychiatric History: No pertinent psych hx Smoking Status: Never smoker Tobacco Use: Non-smoker Drugs: None - *Family History Maternal History Items: No pertinent history - alive at 96 Sibling History Items: - - At 94 from complications following a fall Review of Systems Constitutional: Denies: Chills, Fever, Weight Change HEENT: Denies: Head Aches, Sinus Congestion, Sinus Drainage Cardiovascular: Denies: Chest Pain, Palpitations Respiratory: Denies: Cough, Shortness of breath at rest, Sputum production Gastrointestinal: Denies: Abdominal Pain, Nausea, Vomiting Genitourinary: Denies: Dysuria Musculoskeletal: Reports: Arm Pain - improiving. Denies: Joint Pain, Joint Tenderness Skin: Denies: Rash, Wounds Neurological: Denies: Numbness, Tingling, Focal weakness Psychiatric: Denies: Anxiety, Depression, Homicidal Ideations, Suicidal Ideations Hematologic/ Lymphatic: Denies: Easy Bruising, Easy Bleeding - Physical Exam Vitals/I&O's: Vital Signs Temp Pulse Resp BP Pulse Ox 98.3 F 72 18 130/80 H 100 04/03/20 14:50 04/03/20 14:50 04/03/20 14:50 04/03/20 14:50 04/03/20 14:50 Oxygen Delivery Method Room Air Weight: 155 lb 11.188 oz Body Mass Index (BMI) 23.6 Intake and Output for Last 24 Hours 04/01/20 04/02/20 04/03/20 23:59 23:59 23:59 Intake Total 2312 / 2912 936 / 936 Output Total 350 / 350 Balance 1962 / 2562 936 / 936 General: Alert, Oriented x3, Cooperative HEENT: Atraumatic, PERRLA, EOMI, Normocephalic Neck: Supple, No JVD, Negative Carotid Bruits Lungs: Clear to auscultation, Normal air movement Cardiovascular: Regular rate, No murmurs Abdomen: Bowel Sounds Present, Soft, Non Tender Extremities: No edema, Capillary Refill Less than 3 Seconds Skin: No rashes, No breakdown Musculoskeletal: Tenderness - at site of dog bite, improved in 24 hours per pictures, incresaed ROM of hand/fingers/wrist while at bedside, min pain with prom of fingers, compts soft, sgi Neurological: Cranial nerves II-XII grossly intact Psych/Mental Status: Normal Affect, Appropriate Microbiology Past 72 Hours 04/02/20 06:20 Urine, Clean Catch Urine Culture - Preliminary Culture exhibits no growth. Laboratory Results 04/03/20 06:41: WBC 7.2, RBC 4.68, Hgb 14.8, Hct 42.5, MCV 90.8, MCH 31.6, MCHC 34.8, RDW Std Deviation 39.2, RDW Coeff of Baldomero 11.9, Plt Count 160, MPV 9.3, Immature Gran % (Auto) 0.400, Neut % (Auto) 76.0 H, Lymph % (Auto) 12.3 L, [place] % (Auto) 9.9, Eos % (Auto) 1.1, Baso % (Auto) 0.3, Absolute Neuts (auto) 5.5, Absolute Lymphs (auto) 0.88, Nucleated RBC % 0 04/03/20 06:41: Sodium 138, Potassium 3.6, Chloride 105, Carbon Dioxide 27.0, Anion Gap 6, BUN 13, Creatinine 0.89, Estim Creat Clear Calc 84.33, Est GFR (MDRD) Af Amer 111, Est GFR (MDRD) Non-Af 92, BUN/Creatinine Ratio 14.6, Glucose 118 H, Calcium 8.3 L, Magnesium 2.2 Current Medications Acetaminophen (Tylenol) 650 mg PO Q6H PRN PRN PRN Reason: Pain Score 1-10/Temp > 100.7 F Last Admin: 04/03/20 15:02 Dose: 650 mg Documented by: Al Hydroxide/Mg Hydroxide (Mylanta Ii) 30 ml PO Q6H PRN PRN PRN Reason: Gastric Burning Dextrose (D50w Syringe) 0 gm IV X1 PRN; Protocol PRN Reason: Hypoglycemia Enoxaparin Sodium (Lovenox) 40 mg SC DAILY [facility] Last Admin: 04/03/20 09:29 Dose: 40 mg Documented by: Glucagon () 1 mg IM .X1 PRN PRN Reason: Hypoglycemia Sodium Chloride () 250 mls @ 15 mls/hr IV .[id number] PRN PRN Reason: Saline Flush Last Admin: 04/03/20 09:24 Dose: 15 mls/hr Documented by: Sodium Chloride () 250 mls @ 15 mls/hr IV .[id number] PRN PRN Reason: Additional IVPB Infusion Ceftriaxone Sodium 2 gm/ (Sodium Chloride) 50 mls @ 100 mls/hr IV Q24 [facility] Last Infusion: 04/03/20 12:33 Dose: Infused Documented by: Magnesium Hydroxide (Milk Of Magnesia) 30 ml PO DAILY PRN PRN PRN Reason: Constipation Melatonin (Melatonin) 3 mg PO QHS PRN PRN PRN Reason: INSOMNIA Metronidazole (Flagyl) 500 mg PO TIDCM [facility] Last Admin: 04/03/20 12:34 Dose: 500 mg Documented by: Morphine Sulfate () 4 mg IV Q3H PRN PRN PRN Reason: Pain Score 6-10/10 Ondansetron HCl (Zofran) 4 mg IV Q8H PRN PRN PRN Reason: NAUSEA/VOMITING Oxycodone HCl (Oxyir) 5 mg PO Q4H PRN PRN PRN Reason: Pain Score 4-5/10 Last Admin: 04/03/20 15:01 Dose: 5 mg Documented by: Promethazine HCl (Phenergan) 25 mg IM Q6H PRN PRN PRN Reason: Breakthrough nausea/vomiting Sodium Chloride () 10 - 40 ml IV UD PRN PRN Reason: SALINE FLUSH Assessment/Plan All Active Problems Cellulitis of forearm, right (Acute) Dog bite of right forearm with infection (Acute) Patient has a dog bite of his right forearm with cellulitis which is markedly improved since changing antibiotics States his range of motion of his fingers and his wrist is improving as well during the course of while I was working with him he also maintain full extension of his fingers is able to lay his hand almost completely flat with his palm down I see no signs acutely of need to take him to the OR CT does not show me any abscess or any streaking or any other issues that I am concerned about from an acute finding however if his condition does worsen he has worsening pain of his forearm decreased motion of his hand or fingers patient told to call me through the hospital necktie operator pockets and pieces directly patient is aware of this as well. At this point patient is markedly improved he is improved range of motion of his hand and fingers even while sitting with him today and working on it at his bedside Occupational therapy did evaluate the patient and he has also been working on his range of motion after seeing them today. His arm is not tight or tense or any concerns at this point for compartment syndrome or abscess or fluctuance We will follow him peripherally if signs or symptoms worsen please do not hesitate to call [phone] This note was generated with [employer] software. It may contain incorrect words, spelling, and punctuation that were not noted in checking the note before signing.
[2020-04-03 20:22] VITALS: BP 130/86; PULSE 72; RESP 16; TEMP 36.7; O2SAT 96
[2020-04-03] MEDS: MELATONIN 3 MG TABLET PO (21:59)
[2020-04-03] MEDS: Magnesium Hydroxide 30 ML UDC PO (21:59)
[2020-04-04 02:21] VITALS: BP 147/89; PULSE 59; RESP 16; TEMP 36.9; O2SAT 99
[2020-04-04 06:39] LABS: Absolute Lymphocyte Count 1.12 X10^3/uL (0.83-4.51); Absolute Neutrophil Count 2.9 X10^3/uL (2.0-7.7); Basophil# 0.03 X10^3/uL; Basophil% 0.6 % (0-1); Eosinophil# 0.19 X10^3/uL; Eosinophils% 3.9 % (0-5); Hematocrit 41.5 % (40-54); Hemoglobin 13.9 g/dL (13.0-16.5); Lymphocyte # 1.12 X10^3/ul (4.0); Lymphocyte % 23.1 % (19-41); Mean Corp Hgb Conc 33.5 g/dL (32-36); Mean Corpuscular Hgb 31.2 pg (27.0-32.0); Mean Corpuscular Volume 93.3 fL (80-94); Mean Platelet Vol. 9.1 fl (6.2-12.0); Monocyte# 0.56 X10^3/uL; Monocyte% 11.5 % (0-10); NRBC Flagged by Analyzer 0 % (0-5); Neutrophil # 2.93 X10^3/uL (2.7-7.7); Neutrophil % 60.5 % (47-70); Platelet Count 145 K/mm3 (150-450); RBC Distribution Width CV 12.2 % (11.6-14.6); RBC Distribution Width SD 41.2 fl (35.1-43.9); Red Blood Count 4.45 M/mm3 (4.6-6.2); White Blood Count 4.9 K/mm3 (4.4-11.0)
[2020-04-04 07:31] LABS: Anion Gap 4 (5-15); BUN 12 mg/dL (7-18); BUN/Creat Ratio 14.8 RATIO (10-20); Calcium,Total 8.1 mg/dL (8.5-10.1); Chloride 107 mmol/L (98-107); Creatinine, Serum 0.81 mg/dL (0.70-1.30); EST Glomerular Filtration Rate 102 mL/min (>60); Est Glom Filt Rate - Afr Amer 124 mL/min (>60); Estimated Creatinine Clearance 92.65 ml/min; Glucose 96 mg/dL (74-106); Potassium 3.6 mmol/L (3.5-5.1); Sodium Level 140 mmol/L (136-145)
[2020-04-04 07:47] VITALS: BP 128/96; PULSE 73; RESP 18; TEMP 37.2; O2SAT 100
[2020-04-04 07:49] VITALS: O2SAT 98
--- NOTE | 2020-04-04 07:50 | DCINST_ITS ---
- Discharge Diagnoses Current Active Problems: Current Active and Chronic Problems Cellulitis of forearm, right (Acute) Dog bite of right forearm with infection (Acute) You will use the following diet at home:: No restrictions Discharge Activity: Return to Normal Activity Allergies/Adverse Reactions: Allergies ampicillin Allergy (Verified 04/02/20 05:09) Rash Medications to take at Discharge Cefdinir [Omnicef [equiv]] 300 mg PO Q12H #14 cap 04/04/20 metroNIDAZOLE [Flagyl] 500 mg PO Q8H #21 tab 04/04/20 The following prescriptions were given: metroNIDAZOLE [Flagyl] 500 mg PO Q8H #21 tab Transmission Status: Received by [id number] Cefdinir [Omnicef [equiv]] 300 mg PO Q12H #14 cap Transmission Status: Received by [id number] Primary Care Physician: Osvaldo Webster MD [Primary Care Provider] - Please follow up with your Primary Care Physician in: in 5-7 days Test Results: Test results from this visit will be discussed in further detail at your follow- up appointment, if applicable. Proposed Discharge Date: 04/04/20
--- NOTE | 2020-04-04 08:57 | DS.PCM_ITS ---
Discharge Date and Diagnosis - Problem List Patient Problems: Active and Suspected Problems Cellulitis of forearm, right (Acute) Dog bite of right forearm with infection (Acute) Date of Admission: 04/02/20 Date of Discharge: 04/04/20 - Primary Discharge Diagnosis Acute Problems: Active Problems Cellulitis of forearm, right (Acute) Dog bite of right forearm with infection (Acute) Hospital Course and Treatment Imaging Results: Clinical Impression(s) from Imaging Studies Chest X-Ray 04/02/20 05:21 IMPRESSION: Normal x-ray examination of the chest. Electronically Signed: Teri Salinas at 6:44 EDT Tel , Service support , Forearm X-Ray 04/02/20 05:22 IMPRESSION: Normal x-ray examination of the radius and ulna. Electronically Signed: Teri Salinas at 6:42 EDT Tel , Service support , Hand X-Ray 04/02/20 05:22 IMPRESSION: Normal x-ray examination of the hand. Electronically Signed: Masoud Cuellar MD at 5:58 EDT , Service support , Upper Extremity CT 04/02/20 21:25 IMPRESSION: No focal fluid collections or evidence for abscess. A few tiny foci of soft tissue air seen just volar to the distal ulna, see above. Electronically Signed: Marko Valdovinos MD at 23:06 EDT , Service support , Summary of Care Provided: Patient is a 59-year-old gentleman presented with right forearm erythema and streaking 1. Cellulitis of the right forearm following the dog bites ?Patient did feel outpatient treatment with oral antibiotics admitted to regular nursing floor where patient was started on Levaquin and clindamycin. He apparently has an allergy to penicillin. -04/03/2020. Patient was seen in consultation by Dr. Isabel with infectious diseases note and recommendations including antibiotic recommendations reviewed. ?04/04/2020: Patient was discharged home on Omnicef and Flagyl as recommended by infectious disease 2. DVT prophylaxis Lovenox Patient Problems: Active and Suspected Problems Cellulitis of forearm, right (Acute) Dog bite of right forearm with infection (Acute) Objective: GENERAL: cooperative HEENT: Atraumatic; EYES; Anicteric, Normal Conjunctiva NECK; supple, normal thyroid, RESPIRATORY: Diminished to auscultation CARDIOVASCULAR: Regular S1 S2, PSYCH; Flat affect - Physical Exam Vitals/I&O's: Vital Signs Temp Pulse Resp BP Pulse Ox 98.9 F 73 18 128/96 H 98 04/04/20 07:47 04/04/20 07:47 04/04/20 07:47 04/04/20 07:47 04/04/20 07:49 Oxygen Delivery Method Room Air Weight: 70.624 kg Body Mass Index (BMI) 23.6 Intake and Output for Last 24 Hours 04/02/20 04/03/20 04/04/20 23:59 23:59 23:59 Intake Total 2312 / 2912 1449.25 / 1449.25 Output Total 350 / 350 Balance 1962 / 2562 1449.25 / 1449.25 Microbiology Past 72 Hours 04/02/20 06:20 Urine, Clean Catch Urine Culture - Preliminary Culture exhibits no growth. Laboratory Results 04/04/20 06:20: WBC 4.9, RBC 4.45 L, Hgb 13.9, Hct 41.5, MCV 93.3, MCH 31.2, MCHC 33.5, RDW Std Deviation 41.2, RDW Coeff of [place] 12.2, Plt Count 145 L, MPV 9.1, Immature Gran % (Auto) 0.400, Neut % (Auto) 60.5, Lymph % (Auto) 23.1, [place] % (Auto) 11.5 H, Eos % (Auto) 3.9, Baso % (Auto) 0.6, Absolute Neuts (auto) 2.9, Absolute Lymphs (auto) 1.12, Nucleated RBC % 0 04/04/20 06:20: Sodium 140, Potassium 3.6, Chloride 107, Carbon Dioxide 29.0, Anion Gap 4 L, BUN 12, Creatinine 0.81, Estim Creat Clear Calc 92.65, Est GFR (MDRD) Af Amer 124, Est GFR (MDRD) Non-Af 102, BUN/Creatinine Ratio 14.8, Glucose 96, Calcium 8.1 L Current Medications Acetaminophen (Tylenol) 650 mg PO Q6H PRN PRN PRN Reason: Pain Score 1-10/Temp > 100.7 F Last Admin: 04/03/20 21:58 Dose: 650 mg Documented by: Al Hydroxide/Mg Hydroxide (Mylanta Ii) 30 ml PO Q6H PRN PRN PRN Reason: Gastric Burning Dextrose (D50w Syringe) 0 gm IV X1 PRN; Protocol PRN Reason: Hypoglycemia Enoxaparin Sodium (Lovenox) 40 mg SC DAILY [facility] Last Admin: 04/03/20 09:29 Dose: 40 mg Documented by: Glucagon () 1 mg IM .X1 PRN PRN Reason: Hypoglycemia Sodium Chloride () 250 mls @ 15 mls/hr IV .[id number] PRN PRN Reason: Saline Flush Last Infusion: 04/03/20 16:57 Dose: 0 mls/hr Documented by: Sodium Chloride () 250 mls @ 15 mls/hr IV .[id number] PRN PRN Reason: Additional IVPB Infusion Ceftriaxone Sodium 2 gm/ (Sodium Chloride) 50 mls @ 100 mls/hr IV Q24 [facility] Last Infusion: 04/03/20 12:33 Dose: Infused Documented by: Magnesium Hydroxide (Milk Of Magnesia) 30 ml PO DAILY PRN PRN PRN Reason: Constipation Last Admin: 04/03/20 21:59 Dose: 30 ml Documented by: Melatonin (Melatonin) 3 mg PO QHS PRN PRN PRN Reason: INSOMNIA Last Admin: 04/03/20 21:59 Dose: 3 mg Documented by: Metronidazole (Flagyl) 500 mg PO TIDCM [facility] Last Admin: 04/03/20 17:27 Dose: 500 mg Documented by: Morphine Sulfate () 4 mg IV Q3H PRN PRN PRN Reason: Pain Score 6-10/10 Ondansetron HCl (Zofran) 4 mg IV Q8H PRN PRN PRN Reason: NAUSEA/VOMITING Oxycodone HCl (Oxyir) 5 mg PO Q4H PRN PRN PRN Reason: Pain Score 4-5/10 Last Admin: 04/03/20 21:59 Dose: 5 mg Documented by: Promethazine HCl (Phenergan) 25 mg IM Q6H PRN PRN PRN Reason: Breakthrough nausea/vomiting Sodium Chloride () 10 - 40 ml IV UD PRN PRN Reason: SALINE FLUSH Discharge Diet: No Restrictions Discharge Activity: Return to Normal Activity Home Medications: Medications to take at Discharge Cefdinir [Omnicef [equiv]] 300 mg PO Q12H #14 cap 04/04/20 metroNIDAZOLE [Flagyl] 500 mg PO Q8H #21 tab 04/04/20 Following Prescrptions Were Given to Patient: metroNIDAZOLE [Flagyl] 500 mg PO Q8H #21 tab Transmission Status: [id number] Cefdinir [Omnicef [equiv]] 300 mg PO Q12H #14 cap Transmission Status: Received by [id number] Primary Care Physician: Osvaldo Webster MD [Primary Care Provider] - Please follow up with your Primary Care Physician in: in 5-7 days Disposition: Home Minutes spent on discharge:: 35 Patient Condition:: Stable Medical Necessity - Tobacco Use Smoking Status: Never smoker Tobacco Use: Non-smoker Meaningful Use Info Meaningful Use Diagnoses (Choose all that apply): None applicable Inpatient E&M: 62374 Disch Hosp
[2020-04-04] MEDS: 0.9% Saline Lock 10 ML Syringe IV (10:25)
--- NOTE | 2020-04-04 11:57 | NURSING ---
DR SANTA CALLED TO SEE POSSIBLE TIME SHE MAY BE COMING IN TO SEE PT. SPOKE TO PT DIRECTLY OVER THE PHONE. OK WITH PT DC TODAY.
[2020-04-04] MEDS: metroNIDAZOLE 500 MG Tablet PO (12:31)
[2020-04-04] MEDS: Ibuprofen 400 MG Tablet 800 MG PO (12:31)
[2020-04-04 12:45] VITALS: BP 128/96; PULSE 73; RESP 18; TEMP 37.2; O2SAT 100
== END 2020-04-04 12:45 | disposition home or self-care (01) | DRG 603 ==
LOC: ED 07:19 → MS3 07:28
PROVIDERS: Admitting Provider Internal Medicine; Emergency Provider Emergency Medicine; PCP Family Medicine; Visit Provider Internal Medicine
DX: L03.113 Cellulitis of right upper limb (principal); S51.851A Open bite of right forearm, initial encounter; W54.0XXA Bitten by dog, initial encounter; Z88.0 Allergy status to penicillin
CPT/HCPCS: 36415; 71045; 73090; 73120; 73201; 80048; 80053; 81001; 83605; 83735; 85025; 85610; 85730; 87040; 87086; 97166; 99285; J2185; J7030; J7050; Q9967; A4216; J0696

== ENCOUNTER 2020-04-21 10:30 | Outpatient (RCR) | payer OTHER, SELFPAY ==
[2020-04-08 14:30] VITALS: BMI 23.6
--- NOTE | 2020-04-16 16:45 | HP.OTEVAL ---
Patient's Visit Information KARYN RHOADES III is a 59 year old M, referred to Occupational Therapy by ANGELA Martines, with a diagnosis of . Date of Evaluation: 04/16/20 Occupational Therapist: Bell Garcia - Subjective Pt reports getting bit by dog 15 days ago at neighbor's house. Pt reports biggest concern is flexibility in R wrist. Saw Dr Guerrier April 08, and has a follow up with her on April 21. - ADLs Comments: No concerns with any Comments: No concerns with any Eating: Cut food Comments: Difficulty with cutting food and grasping writing tools Comments: No concerns Comments: No concerns Comments: No concerns Kitchen: Chop with knife, Peel fruits & vegetables, Open jars, Open bottle caps Comments: Difficulty with holding pens Comments: No concerns Yard: Mow lawn Comments: Difficulty with opening medications - Pain R forearm 2 Pain Intensity Range: 3 - Objective Assessed ROM, strength and stone belt sander. See results below. - ROM Wrist: R ext 55 degrees, L ext 70 degrees; R flex 50 degrees, L flex 75 degrees ROM Comments: Fingers AROM WFL - Strength Sterile Supply Technician: R 22#, L 27# Lateral Pinch: R 14#, L 22# Tripod Pinch: R 8#, L 16# Tip-to-Tip Pinch: R 7#, L 12# Strength Comments: R hand dominant - Sensation Sensation Comments: No numbness/tingling noted - Quick DASH-Disab of Arm,Shoulder& Hand Quick DASH Score: 15.9075 - Goals Goal:: Pt will be able to increase stone belt sander/pinch strength by 5-10# to increase functional strength for improved IND with self care tasks Goal:: Pt will increase R wrist flex/extension by 10-15 degrees to increase functional ROM and flexibility to complete ADL tasks Goal:: Pt will be educated on scar management and demo understanding/knowledge Goal:: Pt will be able to cut/peel with utensils with use of AE PRN for increased IND with tasks by d/c. - Rehabilitation Rehabilitation Potential: Good - Anticipated Interventions A/AAROM/PROM, Strengthening, Scar Care, Joint Protection/Energy Conservation, Fine Motor Coord/Aaron, ADL Training, Education re Diagnosis, Education re Self Massage Techniques, Home Program - Visit Plan Frequency: 2-3x /Week Duration: 6 Weeks TEXT: Thank you for the opportunity to evaluate your patient. For Medicare and Medicare HMO plans, please review the plan of care and approve it. It will need to be FAXED BACK to us at [phone] for Medicare purposes. Please let me know if there are questions or concerns regarding this plan of care. Physician Signature: Date:
--- NOTE | 2020-04-23 10:46 | HP.OTDCSUM ---
It has been my pleasure to treat KARYN RHOADES III under orders from ANGELA Martines, for the diagnosis of for a total of 2 visit(s). Please see the following information for a summary of their discharge status. Objective/Function: R wrist flex/ ext 75/ 136. R regional production manager 79#. R pinch regional production manager tip to tip with index finger 7# Patient Goals: Regain Mobility, Regain Strength, Decrease Swelling/Stiffness, Improve Fine Motor Skills, Use Hand/Wrist/Arm Normally Again, Increase ROM, Resume Former Household Responsibilities (Cooking,Cleaning,Yard, etc.) Other: Scar tissue management/education Goal:: Pt will be able to increase regional production manager/pinch strength by 5-10# to increase functional strength for improved IND with self care tasks Goal:: Pt will increase R wrist flex/extension by 10-15 degrees to increase functional ROM and flexibility to complete ADL tasks Goal:: Pt will be educated on scar management and demo understanding/knowledge Goal:: Pt will be able to cut/peel with utensils with use of AE PRN for increased IND with tasks by d/c. Plan: Pt stated he felt he could strengthen at home and would like to be discharged , cancel all remaining appts. Gave business card, he will call with any concerns If there are questions or concerns regarding this patient's occupational therapy, please fell free to call me at [phone]. Thank you for the referral of this patient. Sincerely, Melinda Loya, OTR/L, CHT
== END 2020-04-21 19:00 | disposition home or self-care (01) ==
LOC: OT 10:30
PROVIDERS: PCP Family Medicine; Referring Provider Physician Assistant; Visit Provider Physician Assistant
DX: S51.851D Open bite of right forearm, subsequent encounter (principal)
CPT/HCPCS: 97110; 97166

== ENCOUNTER → 2020-05-02 13:36 | Outpatient (CLI) | payer OTHER, SELFPAY ==
[2020-04-21 09:08] VITALS: BMI 23.6
== END ==
PROVIDERS: PCP Family Medicine; Referring Provider Family Medicine; Visit Provider Family Medicine
DX: R19.7 Diarrhea, unspecified (principal)
CPT/HCPCS: 87493; 87506

== ENCOUNTER → 2020-06-07 09:18 | Outpatient (CLI) | payer OTHER, SELFPAY ==
[2020-04-21 09:08] VITALS: BMI 23.6
== END ==
PROVIDERS: PCP Family Medicine; Referring Provider Family Medicine; Visit Provider Family Medicine
DX: R19.7 Diarrhea, unspecified (principal)
CPT/HCPCS: 87177; 87209; 87493; 87506

== ENCOUNTER → 2020-07-18 17:32 | Outpatient (CLI) | payer OTHER, SELFPAY ==
[2020-04-21 09:08] VITALS: BMI 23.6
== END ==
PROVIDERS: PCP Family Medicine; Visit Provider Family Medicine
DX: R19.7 Diarrhea, unspecified (principal)
CPT/HCPCS: 87177; 87209; 87493; 87506

== ENCOUNTER → 2021-05-04 15:27 | Outpatient (CLI) | payer OTHER, SELFPAY ==
[2020-04-21 09:08] VITALS: BMI 23.6
--- NOTE | 2021-05-04 15:30 | RAD_ITS ---
STUDY: X-RAY - CERVICAL SPINE REASON FOR EXAM: Male, 61 years old. Neck pain. TECHNIQUE: 5 view(s) of the cervical spine were obtained on 7 images. COMPARISON: None FINDINGS: Osteopenia. Normal anterior atlantoaxial articulation. Normal odontoid process. Normal cervical lordosis. Normal vertebral bodies and endplates. Diffuse uncovertebral and facet sclerosis. Minimal intervertebral disc space narrowing at C5-6 with minimal anterior bony neural foraminal encroachment at this level. The soft tissue structures are unremarkable. RAD/Cerv Spine 4 or 5 Views IMPRESSION: Osteopenia with mild focal cervical spondylosis at C5-6. No erosive change or evidence of fusion. Electronically Signed: Yoseph Hammond MD at 10:37 EDT , Service support ,
== END ==
PROVIDERS: PCP Family Medicine; Referring Provider Family Medicine; Visit Provider Family Medicine
DX: M54.2 Cervicalgia (principal)
CPT/HCPCS: 72050

== ENCOUNTER 2021-05-06 14:55 | Emergency (ER) | payer OTHER, SELFPAY ==
[2020-04-21 09:08] VITALS: BMI 23.6
[2021-05-06 14:58] VITALS: BP 179/117; PULSE 95; RESP 14; TEMP 36.5; O2SAT 98; BMI 23.1
--- NOTE | 2021-05-06 16:28 | MRI_ITS ---
STUDY: MRI CERVICAL SPINE WITHOUT CONTRAST REASON FOR EXAM: Male, 61 years old. neck injury, fall 3 weeks ago TECHNIQUE: Standardized fat and water weighted pulse sequences were obtained in the sagittal and axial planes. COMPARISON: Cervical spine x-rays 05/04/2021 FINDINGS: Normal foramen magnum and brainstem-cervical cord junction. Normal craniovertebral junction. Normal anterior atlantoaxial articulation. Normal odontoid process. Normal cervical lordosis. Normal vertebral bodies and posterior osseous elements. C2-3: Normal endplates. Normal disc height, signal and morphology. Normal central canal and intervertebral neural foramina. C3-4: Normal endplates. Normal disc height, signal and morphology. Normal central canal and intervertebral neural foramina. C4-5: Normal endplates. Normal disc height, signal and tiny right paracentral disc protrusion.. Normal central canal and intervertebral neural foramina. C5-6: Minor endplate spurring.. Normal disc height, signal and tiny central disc protrusion.. Normal central canal and intervertebral neural foramina. C6-7: Normal endplates. Normal disc height, signal and morphology. Normal central canal and intervertebral neural foramina. C7-T1: Normal endplates. Normal disc height, signal and morphology. Normal central canal and intervertebral neural foramina. Normal cervical cord. Normal visualized soft tissue structures. MRI/Spine Cervical (Routine) IMPRESSION: No evidence for acute fracture or other significant bony pathology. Tiny central disc protrusion at C5-6 and tiny right paracentral disc protrusion at C4-5 without evidence for spinal stenosis or cord compression Electronically Signed: Prosper Aleman MD at 19:09 EDT , Service support ,
--- NOTE | 2021-05-06 17:33 | EX.ED.DYSGE1 ---
HPI History of Present Illness Chief Complaint: Other, Pain/Inj Narrative Narrative: Patient presenting for evaluation secondary neck pain. Patient states that earlier last month he suffered a mechanical fall while he was running. He states that initially this started with some pain in his right scapular area. He saw his primary care for this, was started on muscle relaxants as well as NSAIDs. Patient states that since then however he has had a significant progression of pain. Now the pain goes into his neck, radiates down his right arm, and the pain is specifically worsened with flexion and extension of the neck. Patient states that if he extends his neck too far he will have immediate radiation of pain down his right arm. He denies that there is weakness associated with this. He was concerned also because this started to develop a pain in his right foot. He denies that there was any sort of injury associated with this. No bowel or bladder incontinence, fevers chills night sweats or unintended weight loss. He again saw his primary care who started him on prednisone, but the patient had a very acute worsening of his pain today to the point where he almost could not even get out of bed. Patient was recommended to come to the emergency department for further evaluation. PFSH PFS Home Medications cyclobenzaprine 10 mg PO TID 05/06/21 [History Last Taken Unknown] meloxicam 15 mg PO DAILY 05/06/21 [History Last Taken Unknown] oxycodone-acetaminophen [Percocet] 1 tab PO Q6H PRN 3 Days #12 tab 05/06/21 [Rx Last Taken Unknown] prednisone 40 mg PO DAILY 05/06/21 [History Last Taken Unknown] Allergy/AdvReac Type Severity Reaction Status Date / Time ampicillin Allergy Rash Verified 05/06/21 15:01 Surgical History H/O excision of ganglion cyst Social History Smoking Status: Never smoker ROS ROS ED Constitutional Constitutional ED: Denies chills or fever(s) ENT ENT ED: Denies rhinorrhea Cardiovascular Cardiovascular: Denies chest pain Respiratory/Chest Respiratory/Chest: Denies cough or dyspnea Gastrointestinal Gastrointestinal: Denies abdominal pain, diarrhea, nausea or vomiting Genitourinary Genitourinary ED: Denies dysuria or hematuria Musculoskeletal Musculoskeletal: Reports neck pain Integumentary Denies rash Neurologic Neurologic: Denies paresthesias or weakness Psychiatric Psychiatric: Denies depression Endocrine Endocrinology: Denies fatigue Allergic/Immunologic Allergic/Immunologic ED: Denies urticaria EXAM Physical Exam Const Vital Signs: 05/06/21 14:58 05/06/21 17:16 Temperature 97.7 F L Temperature Source Temporal Pulse Rate 95 Respiratory Rate 14 Respiratory Effort Normal Non-Labored Blood Pressure 179/117 H Blood Pressure Mean 137 Pulse Ox 98 Oxygen Delivery Method Room Air Positive well nourished and well developed General Appearance ED: well developed and NAD HEENT Reports moist mucous membranes Negative for trauma or tenderness Eyes EOMs intact bilaterally Neck no lymphadenopathy, supple and no JVD Neck Narrative: No reproducible tenderness on palpation, limitation of flexion and extension but not of rotational movement Chest Wall inspection of chest normal Resp normal respiratory effort and clear to auscultation bilaterally Cardio regular rate, regular rhythm, no murmurs and peripheral pulses 2+ throughout GI normal to inspection, nondistended, normoactive bowel sounds, non-tender and no masses Palpation: soft Back/Spine normal to inspection Extremity normal to inspection General Extremety ED: Negative for tenderness Neuro oriented x3 and no sensory deficits noted Neuro Narrative: 5 out of 5 strength at the shoulder elbow wrist and hand with normal sensation over most dermatomes, there is some decrease sensation over the radial portion of the patient's forearm. 2+ brachial radialis biceps and triceps reflexes normal distal pulses. Sensorium / Orientation: alert Motor Exam: strength 5/5 throughout Psych mental status grossly normal Skin no rashes or lesions noted MDM MDM MDM Narrative Medical decision making narrative: Patient presented with radicular neck pain that was worsening with flexion and extension associated with an injury that was worsening. I was concerned for the possibility of emergent process, so I did order an MRI of the patient's cervical spine. This demonstrates no evidence of acute fracture or significant bony pathology, does show some central disc protrusion at C5 and C6, and a right-sided paracentral disc protrusion at C4 and C5 without significant spinal stenosis or cord compression. This likely is the source of the patient's pain. At this point patient has radicular cervical pain. He is already on Mobic, Flexeril, and prednisone. I recommended that he continue these medications. He will be given a referral to neurosurgery. Patient did request a short course of analgesics, will be provided with Percocet. Patient was discharged in stable condition. Radiography Diagnostic Testing: Radiology Impression Cervical Spine MRI 05/06/21 16:28 IMPRESSION: No evidence for acute fracture or other significant bony pathology. Tiny central disc protrusion at C5-6 and tiny right paracentral disc protrusion at C4-5 without evidence for spinal stenosis or cord compression Electronically Signed: Prosper Aleman MD at 19:09 EDT , Service support , Discharge Plan Triage Chief Complaint: Other, Pain/Inj ED Provider: Dereck Shaffer Dx/Rx/DC Orders Clinical Impression: Cervical radiculopathy Instructions: ED Radiculopathy, Cervical Prescriptions: New oxycodone-acetaminophen [Percocet] 5-325 mg tablet 1 tab PO Q6H PRN (Reason: pain) 3 Days Qty: 12 RF: 0 No Action meloxicam 15 mg tablet 15 mg PO DAILY RF: 0 prednisone 20 mg tablet 40 mg PO DAILY RF: 0 cyclobenzaprine 5 mg tablet 10 mg PO TID RF: 0 Primary Care Provider: Osvaldo Webster Referrals: Eric Robles DO [STAFF PHYSICIAN] - 1-2 Weeks Osvaldo Webster MD [Primary Care Provider] - Disposition Disposition: Home, Self Care
[2021-05-06 19:48] VITALS: BP 165/99; PULSE 72; RESP 18; O2SAT 99
== END 2021-05-06 19:48 | disposition home or self-care (01) ==
PROVIDERS: Emergency Provider Emergency Medicine; PCP Family Medicine
DX: M54.12 Radiculopathy, cervical region (principal); Z79.52 Long term (current) use of systemic steroids
CPT/HCPCS: 72141; 99282

== ENCOUNTER 2021-08-04 09:00 | Outpatient (RCR) | payer OTHER, SELFPAY ==
--- NOTE | 2021-05-14 14:22 | HP.PTEVAL_ITS ---
Patient's Visit Information KARYN RHOADES III is a 61 year old M referred to Physical Therapy by Dr. sOvaldo Moyer MD with a diagnosis of OSTEOPENIA - NECK AND SCAPULAE.. Date of Evaluation: 05/14/21 Physical Therapist: Ruma Jules PT, Cert MDT - Visit Plan Frequency: 2-3x /Week Duration: 4-6 Weeks Plan: US, POSTURE CORRECTION/STRENGTHENING, INSTRUCTION IN APPROPRIATE BODY MECHANICS AND ACTIVITY MODIFICATIONS. KIRSTIN UE ROM, STRETCHING AND STRENGTHENING. HEP INSTRUCTION. 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 NOT CURRENTLY ABLE TO RUN. Present symptoms: RIGHT NECK, TRAPEZIUS, UPPER ARM AND FOREARM PAIN. SOMETIMES FEELS NUMBESS IN RIGHT UE. SOMETIMES PAIN AND NUMBESS IN TOES RIGHT AND LEFT. TOE SX'S STARTED AFTER THE FALL. Present since: 04/17/21. Pain Scale: Worst - 8/10 Least - 0/10. Currently: 10/12 RIGHT SHLD/NECK. Commenced as a result of: TRIPPED ON SIDEWALK WHILE RUNNING. Symptoms at onset: SLIGHT ACHE IN RIGHT SHLD. Worse: CAR RIDES, WALKING, BENDING FORWARD, LYING ON THE FLOOR FLAT ON BACK BUT FADE WITH TIME, LYING ON RIGHT SIDE, GETTING IN AND OUT OF BED, LIFTING WITH RIGHT UE - EVEN MILK JUG. SOMETIMES JUST SITTING. ROM IN NECK GETS WORSE THE DAY PROGRESSES. Better: SOMETIMES SITTING, SOMETIMES SITTING AND LEANING FORWARD, MASSAGING NECK, EVENTUALLY IN SUPINE, CHANGE OF POSTITION. Disturbed sleep: YES. Previous history/Previous flex atment: PATIENT DENIES ANY PRIOR NECK OR SHLD ISSUES OR TREATMENTS. This episode: PRESCRIPTION MEDICATIONS AND REST ONLY. CONSULT WITH DR. LUTZ PENDING TOMORROW. Dizziness: YES - NEW - PATIENT RELATES POSSIBLY TO GABAPENTIN AND DR. MOYER IS AWARE. Tinnitis: YES - NOT NEW BUT INCREASED. Nausea: NO. Shortness of Breath: NO. Difficulty Swollowing: NO. Gait: NORMAL. Accidents: NO. Unexplained weight loss: NO. Imaging: CERVICAL MRI LAST WEEK - IMPRESSION: No evidence for acute fracture or other significant bony pathology. Tiny central disc protrusion at C5-6 and tiny right paracentral disc. protrusion at C4-5 without evidence for spinal stenosis or cord compression. Electronically Signed: Prosper Aleman MD. at 19:09 EDT. PMH/Recent major surgery: OSTEOPENIA, LOW BACK PROBLEMS WHEN IN 20'S. OTHER: TAKING MALOXACAM, TYLONOL, GABAPENTIN, AND MUSCLE RELAXER BUT NOT SURE IF HELPING BECAUSE WAS WORSENING WITH ACTIVITY. NOW THAT IS RESTING MORE MIGHT B E GETTING SLIGHTLY BETTER. - Objective Sitting Posture/Standing Posture: FH. RS'S. Other Observations: INDEP GAIT INTO PT WITH NO GROSS DEVIATIONS NOTED. TRANSFERS ARE SLOW AND GUARDED AND PATIENT TENDS TO HOLD HEAD STILL THROUGHOUT SESSION. Motor deficit: L UE ROM AND STRENGTH WFL WITH A MAINTAINABILITY ENGINEER STRENGTH OF 70 LBS. RIGHT UE LIMITED. 95 LBS RIGHT MAINTAINABILITY ENGINEER. RIGHT SHLD FLEX 3-/5, ABD 3+/5, IR 4/5, ER 4/5, ELBOW 5/5. Sensory deficit: KIRSTIN UE LIGHT TOUCH SENSATION APPEARS GROSSLY INTACT AND SYMMETRICAL WITH TESTING TODAY. ROM deficit: RIGHT SHLD ACTIVE FLEXION 148 DEG IN SITTING. FULL RIGHT SHLD ACTIVE ABD. ERP WITH R SHLD ELEVATION. Reflexes: 2/3 KIRSTIN UE'S. Dural Signs: POSITIVE KIRSTIN UE'S RIGHT > LEFT. Cervical Mvmt Loss: Flex: MOD. Pro: NIL. Ext: MOD. Ret: CARMEN. RSB: MOD TO CARMEN. LSB: MOD TO CARMEN. R Rot: MOD TO CARMEN. L Rot: MOD. C/O INCREASED PAIN WITH CERVICAL ROM TESTING ALL PLANES EXCEPT KIRSTIN ROTATION BUT L ROT IS MORE LIMITED THAN RIGHT. Postural strength: FAIR. Palpation: INCREASED MUSCLE TONE WITH PALPATION OF CERVICAL SCALENES AND LEVATORS BUT UPPER TRAPS ARE REALLY NOT TIGHT. NO ACUTE CERVICAL OR OCCIPUT TENDERNESS WITH LIGHT PALPATION. TREATMENT: NEUROMUSCULAR REEDUCATION - RETRAINING OF MVMT AND POSTURE FOR SITTING, LYING AND STANDING ACTIVITIES. - Balance/Special Test Scores Oswestry Neck Score: 23 - Goals Goal 1:: DECREASE C/O NECK AND UE SX'S Goal Time Frame: 4-6 Weeks Goal 2:: IMPROVE PERSONAL CARE, LIFTING, READING, SLEEP, WORK, DRIVING, AND RECREATIONAL FUNCTION. Goal Time Frame: 4-6 Weeks Goal 3:: INSTRUCT IN PROPHYLAXIS Goal Time Frame: 4-6 Weeks - Anticipated Interventions Patient/Client Instruction: Educate patient on: Condition, Plan of Care, Risk Factors For the Purpose of:: To improve self management Therapeutic Exercise to Include: Strength training, Body mechanics, Postural training, Flexibilty training, Neuromotor development, Active ROM, Scapular Strength/Stabilization For the Purpose of:: To decrease pain, To increase ROM, To improve muscle performance and motor function, To increase tolerance to activity/condition/position, To improve ability of physical actions for home/community/work/leisure Cryotherapy (ice pack, ice massage): Yes Thermo therapy (hot pack): Yes Ultrasound (thermal/non thermal): Yes For the Purpose of:: To decrease pain, To improve nutrient delivery to tissue Thank you for the opportunity to evaluate your patient. For Medicare and Medicare HMO plans, please review the plan of care and approve it. It will need to be FAXED BACK to us at [phone] for Medicare purposes. For Medicare only, by signing this I certify the plan of care. Please let me know if there are questions or concerns regarding this plan of care. Physician Signature: Date:
--- NOTE | 2021-06-29 15:13 | HP.PTREVAL ---
Dr. Osvaldo Webster MD, It has been my pleasure to treat KARYN RHOADES III over the last 3 visits for OSTEOPENIA - NECK AND SCAPULAE.. Please see the progress note below for an update on the physical therapy plan of care! Subjective: CANCELLED MARIANELA'T WITH ME LAST WEEK AND. PATIENT REPORTS HAVING A SECOND MEHDI LAST WEEK - NE. STATES LAST PT VISIT WAS NOT EFFECTIVE EITHER. 1ST MEHDI C67 WAS HELPFUL IN DECREASING ACUTE PAIN BUT 2ND MEHDI C 56 WASN'T. CURRENTLY ONLY ABLE TO SLEEP 3-4 BEFORE DISTURBED WITH PAIN. CAN'T SLEEP ON EITHER SIDE NOW. FOR ABOUT A MONTH NOW HE HAS BEEN HAVING GREAT DIFFICULTY WITH HIS NECK LOCKING UP WHEN HE TRANSFERS INTO OR OUT OF LYING. FOOT SX'S HAVE RESOLVED. NEAR CONSTANT KIRSTIN NECK PAIN NOW. RIGHT UE IS BETTER - R UE BRIEF EPISODES ABOUT 12 TIMES A DAY NOW. Objective/Function: PATIENT WAS SEEN TODAY FOR RE-ASSESSMENT OF PROGRESS TOWARD THE SET PT GOALS AND THE NEED FOR FURTHER PHYSICAL THERAPY VS READINESS FOR DISCHARGE. UPON EXAM TODAY: L UE ROM AND STRENGTH WFL WITH A BOROUGH COORDINATOR STRENGTH OF 90 LBS, 95 LBS RIGHT BOROUGH COORDINATOR. RIGHT SHLD FLEX 4/5, ABD 4/5, IR 5/5, ER 4/5, ELBOW 5/5. Sensory deficit: KIRSTIN UE LIGHT TOUCH SENSATION APPEARS GROSSLY INTACT AND SYMMETRICAL WITH TESTING TODAY. ROM deficit: RIGHT SHLD ACTIVE ELEVATION INTO FLEX AND ABD IS FULL NOW AND PATIENT DENIES ERP WITH TESTING TODAY. Dural Signs: POSITIVE R UE. Cervical Mvmt Loss: Flex: MOD. Pro: NIL. Ext: MOD. Ret: CARMEN. RSB: MOD. LSB: MOD. R Rot: MOD. L Rot: MOD. C/O INCREASED ERP WITH CERVICAL ROM TESTING ALL PLANES. Postural strength: FAIR. TRANSFERS - PATIENT WITH PAIN BEHAVIOR AND C/O PAIN AND LOCKING UP OF NECK TRANSITIONING FROM SIT TO SUPINE DESPITE HOLDING HEAD DURING TRANSFER. IT TOOK ABOUT 5 MINUTES FOR PATIENT TO SETTLE INTO A COMFORTABLE SUPINE POSITION. PATIENT TOLERATED EXAM AND INTERVENTIONS WELL TODAY AND COMMUNICATED A GOOD UNDERSTANDING OF ALL INSTRUCTIONS AFTER GIVEN. Plan Plan: US, POSTURE CORRECTION/STRENGTHENING, INSTRUCTION IN APPROPRIATE BODY MECHANICS AND ACTIVITY MODIFICATIONS. KIRSTIN UE ROM, STRETCHING AND STRENGTHENING. HEP INSTRUCTION. THERAPIST ESSENTIAL TO ENSURE SAFE EX TECHNIQUE. Balance/Gait/Functional tests - Balance/Special Test Scores Oswestry Neck Score: 23 Goals Goal 1:: DECREASE C/O NECK AND UE SX'S Goal Time Frame: 4-6 Weeks Goal 2:: IMPROVE PERSONAL CARE, LIFTING, READING, SLEEP, WORK, DRIVING, AND RECREATIONAL FUNCTION. Goal Time Frame: 4-6 Weeks Goal 3:: INSTRUCT IN PROPHYLAXIS Goal Time Frame: 4-6 Weeks Anticipated Interventions Patient/Client Instruction: Educate patient on: Condition, Plan of Care, Risk Factors For the Purpose of:: To improve self management Therapeutic Exercise to Include: Strength training, Body mechanics, Postural training, Flexibilty training, Neuromotor development, Active ROM, Scapular Strength/Stabilization For the Purpose of:: To decrease pain, To increase ROM, To improve muscle performance and motor function, To increase tolerance to activity/condition/position, To improve ability of physical actions for home/community/work/leisure Cryotherapy (ice pack, ice massage): Yes Thermo therapy (hot pack): Yes Ultrasound (thermal/non thermal): Yes For the Purpose of:: To decrease pain, To improve nutrient delivery to tissue Please do not hesitate to contact me at [phone] by phone or if you have questions or concerns regarding this new plan of care! Sincerely, Ruma Jules, PT, Cert MDT
--- NOTE | 2021-10-27 12:32 | HP.PT.NRP ---
KARYN RHOADES III was seen in my office for initial evaluation on 05/14/21. The following Plan of Care was established for this patient: Initial Frequency: 2-3x /Week Initial Duration: 4-6 Weeks Patient/Client Instruction: Educate patient on: Condition, Plan of Care, Risk Factors For the Purpose of:: To improve self management Therapeutic Exercise to Include: Strength training, Body mechanics, Postural training, Flexibilty training, Neuromotor development, Active ROM, Scapular Strength/Stabilization For the Purpose of:: To decrease pain, To increase ROM, To improve muscle performance and motor function, To increase tolerance to activity/condition/position, To improve ability of physical actions for home/community/work/leisure Cryotherapy (ice pack, ice massage): Yes Thermo therapy (hot pack): Yes Ultrasound (thermal/non thermal): Yes For the Purpose of:: To decrease pain, To improve nutrient delivery to tissue This patient was last seen in our office 08/04/21. Pertinent comments regarding their Physical therapy will appear below: This patient has not returned to Physical Therapy and is appropriate to return to MD for further follow-up as needed. At this point I will be discontinuing this patient from physical therapy. I would be happy to see this patient again in the future if found appropriate by the physician. Thank you! Ruma Jules, PT, Cert MDT Balance/Gait/Functional tests - Balance/Special Test Scores Oswestry Neck Score: 23
== END 2021-08-04 19:00 | disposition home or self-care (01) ==
LOC: PT 09:00
PROVIDERS: PCP Family Medicine; Referring Provider Family Medicine; Visit Provider Family Medicine
DX: M85.88 Other specified disorders of bone density and structure, other site (principal)
CPT/HCPCS: 97035; 97110; 97112; 97162; 97164; 97530

== ENCOUNTER → 2022-04-21 | Outpatient (CLI) | payer BC, SELFPAY ==
[2022-04-21 12:23] LABS: Anion Gap 5 (5-15); BUN 21 mg/dL (7-18); BUN/Creat Ratio 21.7 RATIO (10-20); Calcium,Total 9.2 mg/dL (8.5-10.1); Chloride 105 mmol/L (98-107); Cholesterol 233 mg/dL (200); Creatinine, Serum 0.97 mg/dL (0.70-1.30); EST Glomerular Filtration Rate 83 mL/min (>60); Est Glom Filt Rate - Afr Amer 100 mL/min (>60); Glucose 93 mg/dL (74-106); High Density Lipoprotein 53 mg/dL; PSA,Total - Annual Screen 1.31 ng/mL (0.00-4.00); Potassium 4.1 mmol/L (3.5-5.1); Sodium Level 138 mmol/L (136-145); Triglycerides 112 mg/dL; Very Low Density Lipoprotein 22 mg/dL (5-40)
== END | disposition home or self-care (01) ==
LOC: MFPLAB 09:52
PROVIDERS: PCP Family Medicine; Referring Provider Family Medicine; Visit Provider Family Medicine
DX: Z00.00 Encounter for general adult medical examination without abnormal findings (principal)
CPT/HCPCS: 36415; 80048; 80061; 84153; G0103

== ENCOUNTER → 2023-03-14 | Outpatient (CLI) | payer BC, SELFPAY ==
[2023-03-14 15:45] LABS: ALB/GLOB Ratio 1.1 RATIO (0.9-2.4); AST(SGOT) 21 U/L (15-37); Alanine Aminotransfer ALT/SGPT 26 U/L (16-61); Albumin, Serum 4.1 g/dL (3.2-5.0); Alkaline Phosphatase 77 U/L (45-117); Anion Gap 5 (5-15); BUN 16 mg/dL (7-18); BUN/Creat Ratio 20.5 RATIO (10-20); Calcium,Total 8.9 mg/dL (8.5-10.1); Chloride 108 mmol/L (98-107); Cholesterol 192 mg/dL (200); Creatinine, Serum 0.78 mg/dL (0.70-1.30); EST Glomerular Filtration Rate 106 mL/min (>60); Est Glom Filt Rate - Afr Amer 129 mL/min (>60); Globulin 3.7 g/dL (2.2-4.2); Glucose 94 mg/dL (74-106); High Density Lipoprotein 62 mg/dL; Potassium 4.1 mmol/L (3.5-5.1); Protein, Total 7.8 g/dL (6.4-8.2); Sodium Level 140 mmol/L (136-145); Triglycerides 94 mg/dL; Very Low Density Lipoprotein 19 mg/dL (5-40)
== END | disposition home or self-care (01) ==
PROVIDERS: PCP Family Medicine; Visit Provider Family Medicine
DX: E78.5 Hyperlipidemia, unspecified (principal)
CPT/HCPCS: 36415; 80053; 80061

== ENCOUNTER → 2023-10-20 | Outpatient (CLI) | payer MEDICARE, OTHER, SELFPAY ==
--- OUTSIDE RECORDS SUMMARY | 2023-10-20 11:36 | XMS RPT_ITS | CCD ---
Author Name Unknown Address [address] [place] [address] Organization [facility] Care Team Providers Care Senior Military Analyst Name Role Phone PROVIDER, UNKNOWN Attending Unavailable PROVIDER, UNKNOWN Admitting Unavailable PATIENT, SELF Referring Unavailable Allergies Allergy Classification Reported Allergen(s) Allergy Type Date of Onset Reaction(s) Facility (1 source) Ampicillin; Translations: [AMPICILLIN] Drug Allergy 06-26-2020 [facility] Rep[facility] Results Test Name Value Interpretation Reference Range Facil ity Encounters Encounter Date Encounter Type Care Provider Facility Start: 06-26-2020 End: 06-30-2020 ambulatory UNKNOWN PROVIDER Facility:[facility] Payers Date Payer Category Payer Private Health Insurance [id number] 1960 Unknown [id number] Progress note 08-13-2021 Note Date & Type Note Facility 08-13-2021 Note HNO ID: [id number] Author: Christopher Campuzano MD, PhD Service: ? Author Type: Physician Type: Progress Notes Filed: 08/28/2021 8:09 PM Note Text: Referring Physician: Osvaldo Webster MD [address] [place] [address] [address] [facility] [id number] Chief Complaint: Neck pain SUBJECTIVE: Twan Brink presents to [facility] for the evaluation of neck pain. Patient states that he had a fall in April 2021 while running, landing on his left hand and rolling towards his right shoulder. About 4 days after, he started to noticed a right shoulder aching pain that was worse with movements and, one week after, the pain started to radiate from his neck posterolaterally down to his arms to the wrist level, becoming unbearable, when he had to present to ED. Denied weakness, tingling, numbness. He was seen by Ortho, who initially referred the patient to pain medicine. Patient underwent BECKY 2x ( 1st C6-7 with 30% pain relief for a week and 2nd - C5-6 with 20% pain relief for a week). Given that there was no significant improvement, ortho recommended surgery, but patient mentions that he has been progressively improving for the past 3 weeks, with pain level being about 0-1/10 currently. The patient denies unintentional weight loss, fevers, chills, or night sweats, arm or leg weakness and numbness or tingling. Physical Therapy/Home Exercise: Yes Pain Medications: - Opioids: - - NSAIDs: Meloxicam - Anti-Depressants: - - Anti-Convulsants: Gabapentin 300mg daily - Others: Acetaminophen prn OARRS report: Reviewed: The patient's OARRS report was reviewed and is consistent with the reported medication use. Pain medications reviewed: Yes Pain Procedures: BECKY x2 Imaging: Cervical MRI PAST MEDICAL HISTORY Diagnosis Date - Osteopenia PAST SURGICAL HISTORY Procedure Laterality Date - COLONOSCOP W/ OR W/O [facility] SPEC 07/12/2016 Colonoscopy - PAST SURGICAL HISTORY OF Negative Surgical HX per patient Social History Tobacco Use - Smoking status: Never Smoker - Smokeless tobacco: Never Used Vaping Use - Vaping Use: Never used Substance Use Topics - Alcohol use: Yes Comment: 3 times a week - Drug use: No FAMILY HISTORY Problem Relation Age of Onset - Heart Mother - other (covid 19) Mother - Prostate Cancer Father - Breast Cancer Sister ALLERGIES Allergen Reactions - Ampicillin Rash Current Outpatient Medications Medication Sig - meloxicam (MOBIC) 15 mg tablet Take by mouth once daily. - gabapentin (NEURONTIN) 300 mg capsule Take by mouth once daily. - acetaminophen 325 mg cap Take by mouth twice daily. No current facility-administered medications for this visit. REVIEW OF SYSTEMS: GENERAL: No weight loss, malaise or fevers. HEENT: Negative for frequent or significant headaches. NECK: Negative for lumps, goiter, pain and significant neck swelling. RESPIRATORY: Negative for cough, wheezing or shortness of breath. CARDIOVASCULAR: Negative for chest pain, leg swelling or palpitations. GI: Constipation; Negative for abdominal discomfort, blood in stools or black stools or change in bowel habits. MUSCULOSKELETAL: numbness toes ( 2 we after the fall) Negative for joint pain or swelling, back pain or muscle pain. SKIN: Negative for lesions, rash, and itching. PSYCH: Negative for sleep disturbance, mood disorder and recent psychosocial stressors. HEMATOLOGY/LYMPHOLOGY: Negative for prolonged bleeding, bruising easily or swollen nodes. NEURO:No history of headaches, syncope, paralysis, seizures or tremors. All other reviewed and negative other than HPI. OBJECTIVE: BP 143/88 Pulse 74 Temp 97.3 Ht 5' 9 [per patient[ (1.75m) Wt 160 lb (72.6kg) SpO2 98% BMI 23.62 kg/(m2). PHYSICAL EXAMINATION: General appearance: Well appearing, in no acute distress, alert. Psych: Mood and affect appropriate. Skin: Skin color, texture, turgor normal, no rashes or lesions. Head/face: Normocephalic, atraumatic. Neck: No pain to palpation over the cervical paraspinous muscles. Spurling Negative. No pain with neck flexion, extension, or lateral flexion. Cor: RRR Pulm: Non-labored breathing pattern GI: Soft and non-tender. Back: Straight leg raising in the sitting and supine positions is negative to radicular pain. No pain to palpation over the spine or costovertebral angles. Normal range of motion without pain reproduction. Extremities: Peripheral joint ROM is full and pain free without obvious instability or laxity in all four extremities. No deformities, edema, or skin discoloration. Good capillary refill. Musculoskeletal: Shoulder, hip, sacroiliac and knee provocative maneuvers are negative. Bilateral upper and lower extremity strength is normal and symmetric. No atrophy or tone abnormalities are noted. Neuro: Bilateral upper and lower extremity coordination and muscle stretch reflexes are physiologic and symmetric.No loss (more content not included)... [facility] Summary Purpose Family History No Family History Records FoundNo Family History Records Found Advance Directives No Advanced Directives Records FoundNo Advanced Directives Records Found Additional Source Comments (unrecognized sect ion and content) No Status Records FoundNo Status Records Found INFORMATION SOURCE (unrecogn ized section and content) DATE CREATED AUTHOR AUTHOR'S TOAN HYDE 11/05/2021 [facility] FOR RECORDS PERTAINING TO PATIENTS WHO ARE OR HAVE BEEN ENROLLED IN A CHEMICAL DEPENDENCY/SUBSTANCEABUSE PROGRAM, SOME INFORMATION MAY BE OMITTED. This clinical summary was aggregated from multiple sources. Caution should be exercised in using it in the provision of clinical care. This summary normalizes information from multiple sources, and as a consequence, information in this document may materially change the coding, format and clinical context of patient data. In addition, data may be omitted in some cases. CLINICAL DECISIONS SHOULD BE BASED ON THE PRIMARY CLINICAL RECORDS. [facility]. provides no warranty or guarantee of the accuracy or completeness of information in this document.
[2023-10-20 13:20] LABS: Anion Gap 3 (5-15); BUN 17 mg/dL (7-18); BUN/Creat Ratio 18.8 RATIO (10-20); Calcium,Total 9.1 mg/dL (8.5-10.1); Chloride 107 mmol/L (98-107); Cholesterol 179 mg/dL (200); Creatinine, Serum 0.91 mg/dL (0.70-1.30); EST Glomerular Filtration Rate 89 mL/min (>60); Est Glom Filt Rate - Afr Amer 108 mL/min (>60); Glucose 94 mg/dL (74-106); High Density Lipoprotein 53 mg/dL; PSA,Total - Annual Screen 1.16 ng/mL (0.00-4.00); Potassium 4.1 mmol/L (3.5-5.1); Sodium Level 139 mmol/L (136-145); Thyroid Stim Hormone (TSH) 0.91 uIU/mL (0.358-3.74); Triglycerides 96 mg/dL; Very Low Density Lipoprotein 19 mg/dL (5-40)
== END | disposition home or self-care (01) ==
LOC: MTLAB 11:08
PROVIDERS: PCP Family Medicine; Referring Provider Family Medicine; Visit Provider Family Medicine
DX: R97.20 Elevated prostate specific antigen [PSA] (principal); Z12.5 Encounter for screening for malignant neoplasm of prostate
CPT/HCPCS: 36415; 80048; 80061; 84153; 84443; G0103

== ENCOUNTER → 2024-10-22 | Outpatient (CLI) | payer MEDICARE, OTHER, SELFPAY ==
[2024-10-22 12:34] LABS: ALB/GLOB Ratio 1.1 RATIO (0.9-2.4); AST(SGOT) 20 U/L (15-37); Alanine Aminotransfer ALT/SGPT 23 U/L (16-61); Albumin, Serum 4.1 g/dL (3.2-5.0); Alkaline Phosphatase 85 U/L (45-117); Anion Gap 3 (5-15); BUN 22 mg/dL (7-18); Calcium,Total 9.8 mg/dL (8.5-10.1); Chloride 106 mmol/L (98-107); Cholesterol 200 mg/dL (200); Creatinine, Serum 1.05 mg/dL (0.70-1.30); EST Glomerular Filtration Rate 75 mL/min (>60); Est Glom Filt Rate - Afr Amer 91 mL/min (>60); Globulin 3.7 g/dL (2.2-4.2); Glucose 96 mg/dL (74-106); High Density Lipoprotein 60 mg/dL; PSA,Total - Annual Screen 1.53 ng/mL (0.00-4.00); Potassium 4.3 mmol/L (3.5-5.1); Protein, Total 7.8 g/dL (6.4-8.2); Sodium Level 140 mmol/L (136-145); Triglycerides 95 mg/dL; Very Low Density Lipoprotein 19 mg/dL (5-40)
[2024-10-25 00:06] LABS: Lead, Blood Adult 16+yrs 3.5 ug/dL (0.0-3.4)
== END | disposition home or self-care (01) ==
LOC: MTLAB 10:08
PROVIDERS: PCP Family Medicine; Referring Provider Family Medicine; Visit Provider Family Medicine
DX: Z00.00 Encounter for general adult medical examination without abnormal findings (principal); Z77.011 Contact with and (suspected) exposure to lead; E78.5 Hyperlipidemia, unspecified; Z12.5 Encounter for screening for malignant neoplasm of prostate
CPT/HCPCS: 36415; 80053; 80061; 83655; 84153; G0103

== ENCOUNTER → 2024-12-31 | Outpatient (CLI) | payer MEDICARE, OTHER, SELFPAY ==
--- NOTE | 2024-12-31 11:25 | RAD_ITS ---
PROCEDURE: SHOULDER MIN 2 VIEWS 12/31/2024 REASON FOR EXAM: SHOULDER PAIN TECHNIQUE: Four views of the left shoulder COMPARISON: None available FINDINGS: No fracture or dislocation. Leom-[id number] appearing osteoarthrosis acromioclavicular joint with subchondral cyst formation, joint space narrowing and spurring suggested. Glenohumeral joint space appears within limits. Visualized left lung appears clear. RAD/Shoulder min 2 Views IMPRESSION: Inlb-oj-scuekhuq appearing osteoarthrosis acromioclavicular joint Reading Location: [id number]
== END | disposition home or self-care (01) ==
LOC: MTLAB 11:20
PROVIDERS: PCP Family Medicine; Referring Provider Family Medicine; Visit Provider Family Medicine
DX: M25.512 Pain in left shoulder (principal)
CPT/HCPCS: 36415; 73030; 86617

== ENCOUNTER → 2025-01-16 | Outpatient (CLI) | payer MEDICARE, OTHER, SELFPAY ==
--- NOTE | 2025-01-16 15:17 | RAD_ITS ---
PROCEDURE: FINGER(S) MIN 2 VIEWS 01/16/2025 REASON FOR EXAM: Splinter in the right middle digit. TECHNIQUE: 3 view(s) of the 3rd digit. COMPARISON: None FINDINGS: Bones: Unremarkable Joints: Unremarkable Soft tissues: Soft tissue swelling. No radiopaque foreign body is seen. Other: RAD/Finger(s) Min 2 Views IMPRESSION: No radiopaque foreign body is seen. Reading Location: [facility]
== END | disposition home or self-care (01) ==
LOC: RAD 15:16
PROVIDERS: PCP Family Medicine; Referring Provider Surgery Plastic and Reconstructive Surgery; Visit Provider Surgery Plastic and Reconstructive Surgery
DX: S60.459A Superficial foreign body of unspecified finger, initial encounter (principal)
CPT/HCPCS: 73140

== ENCOUNTER 2025-01-18 10:46 | Day surgery (SDC) | payer MEDICARE, OTHER, SELFPAY ==
[2025-01-18 11:04] VITALS: BP 139/96; PULSE 72; RESP 16; TEMP 36.6; O2SAT 97; BMI 22.8
[2025-01-18 11:22] VITALS: BP 168/107; O2SAT 97
--- NOTE | 2025-01-18 11:54 | PCM.HP.STD ---
HPI - General HPI Narrative Twan Brink is a delightful 64-year-old male who is overall healthy and is a non-smoker who presents today with a long finger foreign body on the right side, volar surface over P2 just proximal to the DIP joint. Patient was referred to plastic surgery clinic by [facility]. He reports that on Tuesday, 13 January 2025, he was working in his shop and sustained a deep splinter puncture wound. He was able to get part of the splinter out, but knows that part of it broke and is stuck on the volar aspect of his right long finger. He would like it removed if possible Current Encounter (DATE OF SURGERY H&P UPDATE): I saw and examined the patient this morning in pre-operative holding. We discussed risks and benefits of today's surgery and they would like to proceed. NO CHANGE in health history since last seen and evaluated. Ready to proceed with surgery. INTERVAL H&P PLAN, DATE OF SURGERY: We will proceed with surgery today. [facility] Medical History Lead exposure Home Medications ?Medication ?Instructions ?Recorded ?Last Taken ?Type acetaminophen 325 mg capsule 325 mg PO ONCE PRN 06/03/21 Unknown History (Tylenol) multivitamin 1 tab PO QAM 11/06/24 Unknown History cholecalciferol (vitamin D3) 25 50 mcg PO QDAY 12/06/24 Unknown History mcg (1,000 unit) capsule antiarthritic combination no.2 900 mg PO 01/15/25 Unknown History mg tablet (glucosamine-chondroitin) calcium carbonate 600 mg PO QDAY 01/15/25 Unknown History magnesium 200 mg tablet 200 mg PO QDAY 01/15/25 Unknown History Allergy/AdvReac Type Severity Reaction Status Date / Time ampicillin Allergy Rash Verified 01/18/25 10:59 Family History Mother , 98 No problems noted. Father , 96 Prostate cancer Surgical History H/O excision of ganglion cyst Social History household members: spouse Smoking Status: Never smoker alcohol intake: current alcohol intake frequency: a few times a week substance use type: does not use frequency: 5-6 times per week Vital Signs Vital Signs Vital Signs: 01/18/25 11:04 01/18/25 11:04 Temperature 97.8 F Temperature Source Temporal Pulse Rate 72 Respiratory Rate 16 Respiratory Pattern Normal Blood Pressure 139/96 H Blood Pressure Mean 110 Blood Pressure Source Monitor Blood Pressure Position Semi-Fowlers Blood Pressure Location Right Arm Pulse Ox 97 Oxygen Delivery Method Room Air Weight Weight: 155 lb Body Mass Index (BMI) 22.8 Physical Exam Narrative Right upper Extremity Inspection/palpation: Small puncture wound on the volar surface just proximal to the DIP joint of the right long finger. There is a palpable foreign body. Motor: Able to bend and extend all MP, PIP, and DIP joints. Sensory: Intact to light touch on the radial and ulnar borders. Vascular: Finger tips are warm and well perfused with <2 second capillary refill. Assessment & Plan Assessment/Plan (1) Foreign body finger: PLAN: Plan I talked to the patient extensively about the risks of surgery, including bleeding, infection, damage to surrounding structures, poor scaring, surgical site dehiscence and wound formation, need for wound care, need for repeat operations, failure to obtain the desired result (inability to remove a foreign body/not finding one). The benefits and alternatives of this surgery were also discussed. All of their questions were answered, and they agreed to proceed with surgery. Plan for removal under local today
[2025-01-18 12:10] VITALS: BP 156/99; BP 160/104; BP 162/94; BP 164/102; BP 165/99; BP 181/113; O2SAT 96; O2SAT 97; O2SAT 98; O2SAT 99
[2025-01-18] MEDS: Bupivacaine 0.25% 30 ML Vial (12:15)
[2025-01-18] MEDS: Lidocaine 1% (30 ml sdv) 30 ML Vial (12:15)
[2025-01-18 12:17] VITALS: BP 164/104
[2025-01-18] MEDS: Bupiv/Epi 0.25% 30 ML Vial (12:46)
[2025-01-18 13:25] VITALS: BP 139/96; BP 154/90; PULSE 66; RESP 16; TEMP 36.8; O2SAT 99
--- NOTE | 2025-01-18 17:40 | PCM.OPRPT ---
Operative Report (Standard) Operative Information Date of Procedure: 01/18/25 Pre-Operative Diagnosis: Right long finger splinter injury/puncture wound with possible residual foreign body Post-Operative Diagnosis: Same Surgery/Procedure Performed: 1) Exploration of puncture wound right long finger (CPT: 51201) 2) Simple closure of right long finger wound, 1 cm (CPT: 70088) property management coordinator: No Type of Anesthesia: Local (6 cc of 50-50 mixture of 1% lidocaine and 0.25% Marcaine, followed by 2 cc of 0.25% Marcaine with 1-200,000 epinephrine) RN Documented Start/Stop Times: Operation Date: 01/18/25 12:00 Case Time Into Pre-Op 01/18/25 10:48 Out of Pre-Op 01/18/25 12:01 Into Room 01/18/25 12:03 Procedure Start 01/18/25 12:15 Procedure End 01/18/25 12:47 Anesthesia End 01/18/25 12:52 Out of Room 01/18/25 12:52 Into Phase II Recovery 01/18/25 12:55 Out of Phase II 01/18/25 13:27 Procedure Start Time: 12:15 Procedure Stop Time: 12:47 Select all DRAINS/GRAFTS/IMPLANTS that apply: None Estimated Blood Loss: minimal Specimen collected: No Description of surgery: Indications: Twan Brink is a delightful 64-year-old male who sustained a deep puncture wound while woodworking to his right volar long finger. He felt like there was a piece of wood stuck in the volar finger. I also felt that I palpated it in clinic. There was nothing on x-ray, although wood often does not show up on x-ray. He desired surgical exploration and potential removal. I talked him about the risk of not being able to find the foreign body, as well as infection and damage to surrounding structures. He agreed to proceed. Given proximity to nerves/tendon/digital arteries, I recommended that we explore the wound and attempt removal of foreign body under loupe magnification in the operating room. Procedure details: Patient was correct identified in preoperative holding and I marked the correct digit and identified the puncture wound with the patient. He was taken back to the operating room where he was administered a local block as noted above and prepped and draped in sterile fashion. A turnicot was applied with care taken remove it at the end of the case. Under 3.5X loupe magnification, a 15 blade scalpel was used to make a transverse incision over the center of the puncture wound entry and exit point just proximal to the DIP joint crease of the right volar long finger. Careful dissection was then taken down into the subcutaneous tissue to the level of the A4/A5 philipp junction. Care was taken to be central to the neurovascular bundles on the ulnar and radial sides of the finger. Bipolar electrocautery was used to cauterize subcutaneous veins. There was no identifiable foreign body distal, proximal, or ulnar/radial to the incision. Approximately 20 minutes was spent attempting to identify any foreign body. There was thick scar that was excised, which was developing in the area of the puncture wound. The wound was irrigated with Irrisept and copious amounts of normal saline. The 1 cm exploration wound was then closed with horizontal mattress 4-0 nylon sutures. The patient tolerated the procedure well. A Band-Aid was applied. Postoperative plan: Follow-up in 1 week at the office for suture removal. Discussed with the patient his risk of increased scarring as he has some palmar cords developing consistent with Dupuytren's contracture. The hyper inflammatory response from this disease may have been forming thick scar that may have felt like a residual foreign body. I believe he got the entire splinter out when he removed wood following injury. Follow-up in 1 week, patient happy with the plan Surgical Findings: Unable to find a foreign body. Palpable foreign body and foreign body sensation may have been thick inflammatory tissue forming around the puncture wound or early infection/induration. Complications Complications: No
== END 2025-01-18 13:28 | disposition home or self-care (01) ==
LOC: SDC 10:47 → AC 10:48
PROVIDERS: PCP Family Medicine; Referring Provider Surgery Plastic and Reconstructive Surgery; Visit Provider Surgery Plastic and Reconstructive Surgery
PROC: (CPT 20103; principal; 2025-01-18 11:50)
DX: S60.452A Superficial foreign body of right middle finger, initial encounter (principal); X58.XXXA Exposure to other specified factors, initial encounter
CPT/HCPCS: 20103; A4216

== ENCOUNTER → 2025-01-25 | Outpatient (CLI) | payer MEDICARE, OTHER, SELFPAY | END | disposition home or self-care (01) | PROVIDERS: PCP Family Medicine; Referring Provider Surgery Plastic and Reconstructive Surgery; Visit Provider Surgery Plastic and Reconstructive Surgery | DX: S61.202A Unspecified open wound of right middle finger without damage to nail, initial encounter (principal) | CPT/HCPCS: 87070; 87075; 87077; 87186; 87205 ==

== ENCOUNTER → 2025-01-31 | Outpatient (CLI) | payer MEDICARE, OTHER, SELFPAY | END | disposition home or self-care (01) | LOC: MFPLAB 11:48 → LABSPEC 11:49 | PROVIDERS: PCP Family Medicine; Referring Provider Family Medicine; Visit Provider Family Medicine | DX: R19.7 Diarrhea, unspecified (principal) | CPT/HCPCS: 87493 ==

== ENCOUNTER → 2025-02-21 | Outpatient (CLI) | payer MEDICARE, OTHER, SELFPAY ==
--- NOTE | 2025-02-21 14:16 | CT_ITS ---
PROCEDURE: EXTREMITY UPPER WITHOUT CONTRA 02/21/2025 REASON FOR EXAM: RULE OUT FOREIGN BODY-WOOD IN RIGHT 3rd FINGER TECHNIQUE: Axial CT images of the right hand obtained without intravenous contrast. Coronal and Sagittal reconstruction series were provided. One or more dose reduction techniques were used (e.g., Automated exposure control, adjustment of the mA and/or kV according to patient size, use of iterative reconstruction technique RADIATION DOSE SUMMARY: DLP: 695.82 mGycm COMPARISON: January 16, 2025 x-ray FINDINGS: Bones: There is no fracture or dislocation. Joints: The joint spaces are maintained. Soft Tissues: Skin thickening is noted at the palmar aspect, distal aspect of the 3rd middle phalanx with no visible radiopaque foreign body or organized or drainable collection. CT/Extremity Upper without Contra IMPRESSION: Skin thickening is noted at the palmar aspect, distal aspect of the 3rd middle phalanx with no visible radiopaque foreign body or organized or drainable collection. Reading Location: [facility]
== END | disposition home or self-care (01) ==
LOC: CT 14:14
PROVIDERS: PCP Family Medicine; Referring Provider Surgery Plastic and Reconstructive Surgery; Visit Provider Surgery Plastic and Reconstructive Surgery
DX: L02.519 Cutaneous abscess of unspecified hand (principal); M79.89 Other specified soft tissue disorders
CPT/HCPCS: 73200

== ENCOUNTER 2025-05-30 09:00 | Outpatient (RCR) | payer MEDICARE, OTHER, SELFPAY ==
--- NOTE | 2025-05-01 08:56 | HP.PTEVAL_ITS ---
Patient's Visit Information Visit Information Visit Information: KARYN RHOADES III is a 65 year old M referred to Physical Therapy by Dr. Osvaldo Webster MD with a diagnosis of Left Shoulder Pain. Date of Evaluation: 05/01/25 Physical Therapist: Traci Canseco DPT Visit Plan Frequency: 1x/Week Duration: 6 Weeks Plan: Perform HEP for scapular strength/stabilization (Posture, Mid Row, Scapular Retraction, Bilateral ER, LAE, IR, prone abd, prone scaption)- follow up in 2 weeks for progression and check in. Subjective Subjective: Patient reports that 5 years ago he fell running and hurt his neck and it was radiating down his right arm- 2 years ago frozen shoulder on his left shoulder- October his left started to bother him again- he had a cortisone injection in December- it has not gotten 100% better. He does not feel that the injection really helped. The pain is located in the posterior shoulder- does not radiate at this point. Worst: 2/10 Agg: rotation, painful arc, lifting. Eases: limiting those motions, stretching the pec muscles. Best: 0/10. Right hand dominate. Describes the pain as burning. No N/T in the fingers. No cerv ical pain, NORTH, blurred vision or dizziness. He has had x-rays- [id number]-kc-yvyulroe appearing osteoarthrosis acromioclavicular joint. Sleep: right side sleeper-it has stopped him from sleeping on that side. He is a walker- he tries to lift weight- 2# weights- but would like to get the weights up- everyday. Retired. PMHx/Meds: see list in chart. Objective Objective: Posture: forward head, rounded shoulders- can correct with verbal cues but does not maintain Gait: good arm swing and trunk rotation Palpation: tender along bicipital groove ROM: WNL in all planes of the cervical and left UE- does report pain at end range IR behind the back and painful arc with forward flexion. Strength: Scap: fair, Shoulder: 4+/5 throughout, Elbow: 5/5, Woodworking Shop Laborer:good Sensation: WNL to gross touch bilateral Special Tests L Shoulder Lift Off Test - Subscapular Tear: Negative L Shoulder Drop Sign - IS Test: Negative L Shoulder Empty Can - SS: Positive L Shoulder Belly Press - SupScap: Positive L Shoulder Neer - Impingement: Positive L Shoulder Damon Dante - Impingement: Positive Balance/Special Test Scores Quick DASH Score: 15.9075 Goals Goal 1:: Patient will be I with HEP and progression Goal Time Frame: 4-6 Weeks Goal 2:: Patient will maintain proper posture t/o tx session to demo increased scap s/s Goal Time Frame: 4-6 Weeks Goal 3:: Patient will report 80% improvement Goal Time Frame: 4-6 Weeks Rehabilitation Potential Physical Therapy Diagnosis: Patent presents with decreased pain free ROM, scapular strength/stabilization and muscular endurance leading to increased pain with ADL's Rehabilitation Potential: Good Anticipated Interventions Patient/Client Instruction: Educate patient on: Benefits of Fitness Program Therapeutic Exercise to Include: Strength training, Endurance training, Balance training, Coordination, Agility training, Body mechanics, Postural training, Flexibilty training and Scapular Strength/Stabilization Text: Thank you for the opportunity to evaluate your patient. For Medicare and Medicare HMO plans, please review the plan of care and approve it. It will need to be FAXED BACK to us at [phone] for Medicare purposes. For Medicare only, by signing this I certify the plan of care. Please let me know if there are questions or concerns regarding this plan of care. Physician Signature: Date:
== END 2025-05-30 19:00 | disposition home or self-care (01) ==
LOC: PT 09:00
PROVIDERS: PCP Family Medicine; Referring Provider Family Medicine; Visit Provider Family Medicine
DX: M25.512 Pain in left shoulder (principal)
CPT/HCPCS: 97110; 97162

== ENCOUNTER 2025-08-23 13:40 | Emergency (ER) | payer MEDICARE, OTHER, SELFPAY ==
[2025-08-23 13:41] VITALS: BP 135/88; PULSE 100; RESP 18; TEMP 35.8; O2SAT 97; BMI 24.9
--- NOTE | 2025-08-23 15:06 | EX.ED.UPPERE ---
HPI History of Present Illness HPI Narrative: Patient presents with lacerations to his left thumb that occurred today. Patient states he was doing some woodworking when the wood was kicked back out of the planer. Patient states the wood hit the end of his thumb. Patient admits to some tingling in the tip of his thumb. Patient states he took Advil which helped with the pain. Patient describes pain as throbbing and dull. Patient is right-hand dominant. Patient states his last tetanus was earlier this year. Patient denies any other injuries. Chief Complaint: Laceration Informant: patient Onset/Context/Timing Onset: Today Context: Sudden Onset Timing: Continuous Quality of Pain: Dull and Throbbing Location: Left thumb Worsened by: Nothing Relieved by: Advil Associated Symptoms Associated Symptoms: Positive for Parasthesia (Tingling over the tip of the thumb); Negative for Weakness or Loss of Funtion Narrative Tetanus Immunization: <5 years PFSH PFS Medical History Foreign body finger Lead exposure Home Medications ?Medication ?Instructions ?Recorded ?Last Taken ?Type acetaminophen 325 mg capsule 325 mg PO ONCE PRN 06/03/21 Unknown History (Tylenol) multivitamin 1 tab PO QAM 11/06/24 Unknown History cholecalciferol (vitamin D3) 25 50 mcg PO QDAY 12/06/24 Unknown History mcg (1,000 unit) capsule antiarthritic combination no.2 900 mg PO 01/15/25 Unknown History mg tablet (glucosamine-chondroitin) calcium carbonate 600 mg PO QDAY 01/15/25 Unknown History magnesium 200 mg tablet 200 mg PO QDAY 01/15/25 Unknown History doxycycline hyclate 100 mg capsule 100 mg PO BID 5 days #10 caps 01/18/25 Unknown Rx mupirocin 2 % topical ointment topical BID 01/31/25 Unknown History Allergy/AdvReac Type Severity Reaction Status Date / Time ampicillin Allergy Rash Verified 08/23/25 13:41 Family History Mother , 98 No problems noted. Father , 96 Prostate cancer Surgical History H/O excision of ganglion cyst Social History household members: spouse Smoking Status: Never smoker alcohol intake: current alcohol intake frequency: a few times a week substance use type: does not use frequency: 5-6 times per week ROS ROS ED Constitutional Constitutional ED: Denies chills or fever(s) Eyes Eyes: Denies blurry vision or change in vision ENT ENT ED: Denies rhinorrhea or sore throat Cardiovascular Cardiovascular: Denies chest pain or palpitations Respiratory/Chest Respiratory/Chest: Denies cough or dyspnea Gastrointestinal Gastrointestinal: Denies nausea or vomiting Genitourinary Genitourinary ED: Denies dysuria or hematuria Musculoskeletal Musculoskeletal: Denies back pain or neck pain Integumentary Denies abscess or rash Neurologic Neurologic: Denies headache(s) or weakness Allergic/Immunologic Allergic/Immunologic ED: Denies mouth swelling or urticaria EXAM Physical Exam Const Vital Signs: 08/23/25 13:41 Temperature 96.5 F L Temperature Source Temporal Pulse Rate 100 Respiratory Rate 18 Blood Pressure 135/88 H Blood Pressure Mean 103 Pulse Ox 97 Oxygen Delivery Method Room Air Positive well nourished and well developed Constitutional Narrative: BMI is 25.0. General Appearance ED: well developed and NAD HEENT Reports moist mucous membranes normocephalic and atraumatic Neck full ROM and supple Extremity Extremity Narrative: There is tenderness over the left thumb. There is a 1.2 cm full-thickness linear laceration over the tip of the left thumb. There is a 2.1 cm linear laceration along the radial aspect of the proximal phalanx of the left thumb. There is mild gapping of the wound margins. There is mild bleeding. There are no foreign bodies noted. There is full range of motion of the IP and MP joints. Strength is 5/5 in flexion extension. There are no sensory deficits noted. Capillary refill is less than 2 seconds in all digits. Neuro oriented x3, CN's II-XII intact bilaterally, moves all extremities, no focal motor deficits and no sensory deficits noted Sensorium / Orientation: alert Motor Exam: strength 5/5 throughout Psych mental status grossly normal MDM MDM MDM Narrative Medical decision making narrative: The wound was cleaned and irrigated with copious amounts of normal saline. The wound was anesthetized with 1% plain lidocaine via digital block. The wound over the proximal phalanx was closed with 4 simple interrupted #4-0 nylon sutures under sterile technique. The wound over the tip of the thumb was closed with 3 simple interrupted #4-0 nylon sutures under sterile technique. Patient tolerated the procedure well. Bacitracin dressing was applied. Patient was instructed to keep the wounds clean and dry. Patient was instructed to follow-up with his primary care physician in 7 to 10 days for wound recheck and suture removal. Patient understood and was agreeable with the plan. All questions were answered. Procedures Lacerations Proximal left thumb: Length: 2.1 cm Depth: Sub Q Shape: Linear Prep: Sterile Conditions and Chlorhexadine Laceration repair: Digital block, Irrigated, Lidocaine, Skin sutures and Wound explored Number of Sutures/Alpa: 4 Suture Information: Ethilon, Simple and 4-0 Tip of left thumb: Length: 1.2 cm Depth: Sub Q Shape: Linear Prep: Sterile Conditions Laceration repair: Digital block, Irrigated, Lidocaine, Skin sutures and Wound explored Number of Sutures/[place]: 3 Suture Information: Ethilon, Simple and 4-0 Discharge Plan Triage Chief Complaint: Laceration ED Provider: Pee Barajas Dx/Rx/DC Orders Clinical Impression: Laceration of left thumb without foreign body without damage to nail Instructions: ED Laceration, All Closures Prescriptions: No Action acetaminophen [Tylenol] 325 mg capsule 325 mg PO ONCE PRN multivitamin Tablet 1 tab PO QAM cholecalciferol (vitamin D3) 25 mcg (1,000 unit) capsule 50 mcg PO QDAY calcium carbonate 600 mg calcium (1,500 mg) tablet 600 mg PO QDAY magnesium 200 mg tablet 200 mg PO QDAY glucosamine-chondroitin 900 mg tablet PO mupirocin 2 % ointment topical BID doxycycline hyclate 100 mg capsule 100 mg PO BID 5 Days Qty: 10 0RF Primary Care Provider: Osvaldo Webster Referrals: Osvaldo Webster MD [Primary Care Provider, Family Practice] - 7 Days for suture removal Print Language: Guyanese Disposition Disposition: Home, Self Care
[2025-08-23] MEDS: Lidocaine 1% (20 ml mdv) 20 ML Vial INFILT (15:51)
[2025-08-23 16:47] VITALS: BP 131/91; PULSE 80; RESP 16; TEMP 35.8; O2SAT 97
== END 2025-08-23 16:49 | disposition home or self-care (01) ==
PROVIDERS: Emergency Provider Emergency Medicine; PCP Family Medicine; Visit Provider Emergency Medicine
DX: S61.012A Laceration without foreign body of left thumb without damage to nail, initial encounter (principal); W31.2XXA Contact with powered woodworking and forming machines, initial encounter
CPT/HCPCS: 12001; 99283